=== PATIENT | female | born 1945 | race Caucasian/White ===

== ENCOUNTER → 2020-01-27 13:39 | Outpatient (BNVA) | payer MEDICARE, SELFPAY | PROVIDERS: Family Provider Nurse Practitioner Family; PCP Nurse Practitioner Family; Visit Provider Family Medicine | DX: I10 Essential (primary) hypertension (principal); F41.9 Anxiety disorder, unspecified; R73.03 Prediabetes; J44.1 Chronic obstructive pulmonary disease with (acute) exacerbation; N39.0 Urinary tract infection, site not specified | CPT/HCPCS: 80053; 81003; 82306; 83036; 84443; 85025 ==

== ENCOUNTER → 2020-08-16 10:16 | Outpatient (BNVA) | payer MEDICARE, SELFPAY | PROVIDERS: Family Provider Nurse Practitioner Family; PCP Nurse Practitioner Family; Visit Provider Nurse Practitioner Family | DX: R30.0 Dysuria (principal); N39.0 Urinary tract infection, site not specified; R31.9 Hematuria, unspecified; J06.9 Acute upper respiratory infection, unspecified; H60.93 Unspecified otitis externa, bilateral; F41.9 Anxiety disorder, unspecified; E04.9 Nontoxic goiter, unspecified | CPT/HCPCS: 81003 ==

== ENCOUNTER → 2020-08-17 08:25 | Outpatient (BNVA) | payer MEDICARE, SELFPAY | PROVIDERS: Family Provider Nurse Practitioner Family; PCP Nurse Practitioner Family; Visit Provider Nurse Practitioner Family | DX: E04.9 Nontoxic goiter, unspecified (principal); I10 Essential (primary) hypertension; E55.9 Vitamin D deficiency, unspecified | CPT/HCPCS: 80053; 82306; 84439; 84443; 85025 ==

== ENCOUNTER → 2021-03-03 11:58 | Outpatient (BNVA) | payer MEDICARE, SELFPAY | PROVIDERS: Family Provider Nurse Practitioner Family; PCP Nurse Practitioner Family; Visit Provider Nurse Practitioner Family | DX: N39.0 Urinary tract infection, site not specified (principal); R31.9 Hematuria, unspecified | CPT/HCPCS: 81003; 87077; 87086; 87184 ==

== ENCOUNTER → 2021-07-12 16:17 | Outpatient (BNVA) | payer MEDICARE, SELFPAY | PROVIDERS: Family Provider Nurse Practitioner Family; PCP Nurse Practitioner Family; Visit Provider Nurse Practitioner Family | DX: N39.0 Urinary tract infection, site not specified (principal); R31.9 Hematuria, unspecified; R32 Unspecified urinary incontinence; E04.9 Nontoxic goiter, unspecified; E55.9 Vitamin D deficiency, unspecified; R73.03 Prediabetes; I10 Essential (primary) hypertension; Z13.6 Encounter for screening for cardiovascular disorders; M54.50 Low back pain, unspecified | CPT/HCPCS: 80053; 80061; 81003; 82306; 83036; 84439; 84443; 85025 ==

== ENCOUNTER → 2021-11-22 08:09 | Outpatient (BNVA) | payer MEDICARE, SELFPAY | PROVIDERS: Family Provider Nurse Practitioner Family; PCP Nurse Practitioner; Visit Provider Nurse Practitioner Family | DX: N39.0 Urinary tract infection, site not specified (principal); F41.9 Anxiety disorder, unspecified; R39.9 Unspecified symptoms and signs involving the genitourinary system | CPT/HCPCS: 81000 ==

== ENCOUNTER → 2022-10-05 11:39 | Outpatient (BNVA) | payer MEDICARE, SELFPAY | PROVIDERS: Family Provider Nurse Practitioner Family; PCP Nurse Practitioner; Visit Provider Nurse Practitioner | DX: R31.9 Hematuria, unspecified (principal); N39.0 Urinary tract infection, site not specified | CPT/HCPCS: 81000; 87086 ==

== ENCOUNTER → 2022-12-13 08:53 | Outpatient (BNVA) | payer MEDICARE, SELFPAY | PROVIDERS: Family Provider Nurse Practitioner Family; PCP Nurse Practitioner; Visit Provider Nurse Practitioner Family | DX: N39.0 Urinary tract infection, site not specified (principal) | CPT/HCPCS: 81000 ==

== ENCOUNTER 2023-06-14 18:08 | Inpatient (IN) | payer MEDICARE, MEDICAID, SELFPAY ==
[2023-06-14] VITALS (7 sets, daily range): BP systolic 140–202; BP diastolic 85–121; PULSE 84–106; RESP 18–22; TEMP 36.4; O2SAT 95–99; BMI 28.5
--- NOTE | 2023-06-14 18:14 | XRR_ITS ---
PROCEDURE INFORMATION: Exam: XR Chest Exam date and time: 06/14/2023 6:36 PM Age: 78 years old Clinical indication: Dyspnea TECHNIQUE: Imaging protocol: Radiologic exam of the chest. Views: 1 view. COMPARISON: No relevant prior studies available. FINDINGS: Lungs: Lungs are hyperinflated. Clear parenchyma. Pleural spaces: No pleural effusion. No pneumothorax. Heart/Mediastinum: Cardiac silhouette is normal in size for technique. Bones/joints: Subjective bony demineralization. XR/XR chest 1V portable [id number] IMPRESSION: Hyperinflated but clear lungs. No other acute cardiopulmonary abnormality.
--- NOTE | 2023-06-14 18:19 | ECG_ITS ---
[facility] Test Date: 2023-06-14 Pat Name: Minnie Sanchez Department: Room: Gender: Female Import/Export Analyst: : 1945 Requested By: Jaswant Lindquist Order Number: [id number] Coty MD: Leigh Adhikari M.D. Measurements Intervals [place] Rate: 98 P: 60 ME: 159 QRS: 35 QRSD: 91 T: 94 QT: 323 QTc: 414 Interpretive Statements SINUS RHYTHM WITH OCCASIONAL SUPRAVENTRICULAR PREMATURE COMPLEXES SEPTAL MYOCARDIAL INFARCTION , PROBABLY OLD [40+ ms Q WAVE IN V1/V2] No previous ECG available for comparison Electronically Signed On 06-14-2023 21:13:04 PROJECTS MANAGER by Leigh Adhikari M.D. [id number] f
--- NOTE | 2023-06-14 18:19 | ED_ITS ---
HPI - SOB/Dyspnea 2 General: Chief Complaint: Shortness of Breath/Dyspnea Stated Complaint: sob Time Seen by Provider: 06/14/23 18:08 History of Present Illness: HPI Narrative: Patient presents to the ER from the EMS from the long-term with complaints of shortness of breath. Patient had pneumonia approximately a month ago was put in a long-term for rehab and underwent several treatments but she has not been getting any better. Today EMS was called for shortness of breath. When I got there they said she was breathing about 40 times a minute with very small tidal volume. They put her on CPAP immediately I brought her to the emergency room. Review of Systems 2 General: Reports: 10 or more systems reviewed and unremarkable except in HPI and below PFSH ED 2 PFSH: Medical History Lumbar pain Hypertension screen Urinary incontinence Frequent UTI Vitamin D deficiency Thyroid goiter Otitis externa of both ears Urinary tract infection Upper respiratory infection Cough Lower respiratory tract infection Refused influenza vaccine Chronic obstructive pulmonary disease Anxiety Essential hypertension Surgical History History of cholecystectomy H/O: hysterectomy Social History Smoking and tobacco/nicotine status: former use of tobacco/nicotine Physical Exam 2 Const: COMMON NORMALS: average body habitus, patient oriented x3, no limitations, healthy appearing, alert and well nourished HENMT: COMMON NORMALS: normocephalic, atraumatic, hearing grossly normal bilaterally, EAC's normal, Normal external nose present, moist oral mucous membranes and oropharynx normal HEAD & SCALP: normocephalic and atraumatic NOSE: Normal external nose present EXTERNAL AUDITORY CANAL: EAC's normal Eye: COMMON NORMALS: Equal, round and reactive pupils present, EOMs intact bilaterally, conjunctivae normal and no scleral icterus CONJUNCTIVA: Yes conjunctivae normal PUPIL: Yes Equal, round and reactive pupils present Neck/C-Spine: COMMON NORMALS: full ROM, no lymphadenopathy, supple, no meningeal signs, no JVD and Thyroid normal THYROID: Thyroid normal Chest: COMMONS NORMALS: normal inspection of the chest and normal palpation of entire chest wall Resp: COMMON NORMALS: negative for normal respiratory effort, negative for No retractions, negative for No use of accessory muscles (Abdominal breathing) and negative for clear to auscultation bilaterally (Rhonchi and wheezes bilaterally with very limited air movement) AUSCULTATION: not clear to auscultation bilaterally (Rhonchi and wheezes bilaterally with very limited air movement) Cardio: COMMON NORMALS: no JVD, regular rate, regular rhythm, S1 normal heart sound present, S2 normal heart sound present, No gallops present (Cardio), No clicks present (Cardio), No murmurs present (Cardio) and No rub (Cardio) R ATE: regular rate RHYTHM: regular rhythm HEART SOUNDS: S1 normal heart sound present and S2 normal heart sound present GI: COMMON NORMALS: Normal to inspection, nondistended, normoactive bowel sounds present, Soft to palpation, non-tender, No hepatosplenomegaly present and no masses PALPATION: Yes Soft to palpation and Yes No hepatosplenomegaly present Extremity: NARRATIVE EXTREMITY EXAM: Negative bilateral lower extremity edema Neuro: COMMON NORMALS: patient oriented x3 SENSORIUM/ORIENTATION: Yes alert MENINGEAL SIGNS: Yes no meningeal signs Course 2 Vital Signs: Vital signs: Vital Signs Temperature 97.6 F 06/14/23 18:11 Pulse Rate 105 H 06/14/23 22:14 Respiratory Rate 18 06/14/23 22:14 Blood Pressure 151/108 06/14/23 22:14 Pulse Oximetry 96 06/14/23 22:14 Oxygen Delivery Me thod Nasal Cannula 06/14/23 18:35 Oxygen Flow Rate 2 06/14/23 18:35 MDM - SOB/Dyspnea Medical Decision Making Patient arrived to the ER with BiPAP in place but did not like the BiPAP we placed on 2 L of oxygen per nasal cannula and her oxygen saturation stayed in the mid 90s. An ABG was obtained which showed her pH pCO2 was normal her pO2 was decreased at 77, CBC CMP chest x-ray were all obtained and were essentially benign. Patient's initial troponin was approximately 39 and her 2-hour troponin was approximately 49 for delta of 10 patient is not having chest pain nor has she ever had chest pain. Patient was given 125 mg Solu-Medrol. Lactic acid, procalcitonin were both normal influenza and COVID were negative Dr. Mcclellan was consulted for further evaluation and treatment and he agreed to place patient in CSU for observation. Differential Diagnosis Likely acute exacerbation of chronic obstructive airways disease and community acquired pneumonia; Unlikely congestive heart failure, asthma with exacerbation or pulmonary embolism Medical Records I reviewed the patient's medical records. Lab Data I reviewed the patient's lab results. 06/14/23 18:22 06/14/23 18:22 Labs/Radiology: Radiology Impressions Chest X-Ray 06/14/23 18:14 IMPRESSION: Hyperinflated but clear lungs. No other acute cardiopulmonary abnormality. Laboratory Results WBC 8.11 10^3/uL (3.29-11.43) 06/14/23 18:22 RBC 5.34 10^6/uL (3.85-5.65) 06/14/23 18:22 Hgb 15.40 g/dL (11.27-16.99) 06/14/23 18:22 Hct 48.6 % (36-47) H 06/14/23 18:22 MCV 91.0 fl (85-98) 06/14/23 18:22 MCH 28.8 pg (27-33) 06/14/23 18: MCHC 31.7 g/dL (30-55) 06/14/23 18:22 RDW 14.9 % (12.1-15.1) 06/14/23 18:22 Plt Count 249 10^3/cmm (157-399) 06/14/23 18:22 MPV 8.4 fL (7.4-10.4) 06/14/23 18:22 Neut % (Auto) 92.0 % 06/14/23 18:22 Lymph % (Auto) 3.8 % 06/14/23 18:22 Garden % (Auto) 3.6 % 06/14/23 18:22 Eos % (Auto) 0.0 % 06/14/23 18:22 Baso % (Auto) 0.0 % 06/14/23 18:22 Neut # (Auto) 7.46 10^3/uL (1.8-7.7) 06/14/23 18:22 Lymph # (Auto) 0.3 10^3/uL (0.8-4.8) L 06/14/23 18:22 Garden # (Auto) 0.3 10^3/uL (0.2-0.9) 06/14/23 18:22 Eos # (Auto) 0.0 10^3/uL (0.0-0.8) 06/14/23 18:22 Baso # (Auto) 0.0 10^3/uL (0.0-0.1) 06/14/23 18:22 Nucleated RBC % (auto) 0 % 06/14/23 18:22 Nucleated RBCs # 0.0 /100WBC 06/14/23 18:22 Specimen Type Arterial 06/14/23 18:15 Sample Site Radial, right 06/14/23 18:15 ABG pH 7.39 (7.35-7.45) 06/14/23 18:15 ABG pCO2 40.1 mmHg (35-45) 06/14/23 18:15 ABG pO2 77.6 mmHg (80.0-100.0) L 06/14/23 18:15 ABG PO2/FiO2 Ratio 0 06/14/23 18:15 ABG HCO3 24.0 mmol/L (22-26) 06/14/23 18:15 ABG O2 Saturation 96.7 06/14/23 18:15 ABG Base Excess -0.9 mmol/L (-2.0-2.0) 06/14/23 18:15 Madi Test Pos 06/14/23 18:15 A-a O2 Gradient 3.1 mmHg (5-10) L 06/14/23 18:15 Hematocrit 51.7 % (37-47) H 06/14/23 18:15 Hgb O2 Saturation 95.8 % (95-100) 06/14/23 18:15 Carboxyhemoglobin 0.7 %THgb (0.4-20.1) 06/14/23 18:15 Methemoglobin 0.2 % (0.4-1.5) L 06/14/23 18:15 Total Hemoglobin 16.9 g/dL (12-16) H 06/14/23 18:15 Sodium 144.0 mmol/L (131-143) H 06/14/23 18:15 Potassium 4.2 mmol/L (3.5-5.0) 06/14/23 18:15 Glucose 142.0 mg/dL (70-115) H 06/14/23 18:15 Ionized Calcium 1.3 mmol/L (1.1-1.4) 06/14/23 18:15 O2 Delivery Device Nc 06/14/23 18:15 O2 Liters/Min 0.0 % 06/14/23 18:15 FiO2 21.0 % 06/14/23 18:15 Senior Game Developer ID [email or web address] 06/14/23 18:15 Sodium 143 mmol/L (136-145) 06/14/23 18:22 Potassium 4.5 mmol/L (3.5-5.1) 06/14/23 18:22 Chloride 113 mmol/L (98-107) H 06/14/23 18:22 Carbon Dioxide 22 mmol/L (22-29) 06/14/23 18:22 Anion Gap 12.5 (5-19) 06/14/23 18:22 BUN 28 mg/dL (8-23) H 06/14/23 18:22 Creatinine 0.5 mg/dL (0.5-0.9) 06/14/23 18:22 GFR Calculation Not Reportable 06/14/23 18:22 Glucose 146 mg/dL (65-115) H 06/14/23 18:22 Calculated Osmolality 304 mOsm/kg (285-295) H 06/14/23 18:22 Lactic Acid 0.9 mmol/L (0.5-2.2) 06/14/23 18:22 Calcium 8.6 mg/dL (8.5-10.5) 06/14/23 18:22 Magnesium 2.2 mg/dL (1.7-2.3) 06/14/23 18:22 Total Bilirubin 0.5 mg/dL (0.15-1.2) 06/14/23 18:22 AST 28 U/L (0-32) 06/14/23 18:22 ALT 57 U/L (0-33) H 06/14/23 18:22 Alkaline Phosphatase 122 U/L (35-105) H 06/14/23 18:22 Troponin T Baseline 39 ng/L (0-10) H 06/14/23 18:22 Troponin T 120 Minute 49.64 ng/L (0-10) H 06/14/23 21:05 Delta Troponin T 10.64 ABS# (0-10) H* 06/14/23 21:05 Total Protein 5.2 g/dL (6.6-8.7) L 06/14/23 18:22 Albumin 3.4 g/dL (3.5-5.2) L 06/14/23 18:22 Globulin 1.8 g/dL (1.3-4.6) 06/14/23 18:22 Procalcitonin 0.08 ng/mL (0-0.5) 06/14/23 18:22 Influenza Type A Ag negative (Negative) 06/14/23 18:25 Influenza Type B Ag negative (Negative) 06/14/23 18:25 SARS-CoV-2 Ag (Rapid) negative (Negative) 06/14/23 18:25 All radiology interpretation(s) finalized by discharge EKG Data EKG 1: I personally reviewed and interpreted this EKG as follows: EKG Interpretation Date: 06/14/23 EKG interpretation time: 18:19 Prior EKG tracings: not available for review Interpretation: Ventricular rate 98 bpm, IN interval 159, QRS duration 91, QTc of 379, sinus rhythm with occasional PVC, EKG 2: I personally reviewed and interpreted this EKG as follows: EKG Interpretation Date: 06/14/23 EKG interpretation time: 21:58 Prior EKG tracings: available for review Interpretation: Ventricular rate 102 bpm, IN interval 149, QRS duration 112, QTc of 393, sinus tachycardia with occasional PVCs Discharge Plan Discharge Patient Disposition: Placed in Observation Clinical Impression: Acute exacerbation of chronic obstructive pulmonary disease, Acute hypoxic respiratory failure, Elevated troponin, Hypertension Condition: Stable Prescriptions: No Action loratadine [Claritin] 10 mg tablet 10 mg PO DAILY betamethasone acet,sod phos 6 mg/mL suspension 6 mg IM ONCE Qty: 1 0RF cholecalciferol (vitamin D3) 1,250 mcg (50,000 unit) capsule 1,250 mcg PO .weekly Qty: 4 5RF hydroxyzine HCl 25 mg tablet 25 mg PO BEDTIME PRN (Reason: insomnia) Qty: 30 0RF ropinirole 0.5 mg tablet 0.5 mg PO DAILY Qty: 30 6RF Rx Instructions: at bedtime for RLS Breo Ellipta 100-25 mcg/dose blister with device 1 inh inhalation DAILY Qty: 60 1RF cyclobenzaprine 10 mg tablet 10 mg PO DAILY PRN (Reason: muscle spasm) Qty: 7 0RF furosemide 20 mg tablet See Rx Instructions .ROUTE .COMPLEX Qty: 90 1RF Dose Instruction: TAKE 1 TABLET BY MOUTH EVERY DAY Rx Instructions: TAKE 1 TABLET BY MOUTH EVERY DAY potassium chloride 20 mEq tablet,ER particles/crystals See Rx Instructions .ROUTE .COMPLEX Qty: 90 1RF Dose Instruction: TAKE 1 TABLET BY MOUTH EVERY DAY Rx Instructions: TAKE 1 TABLET BY MOUTH EVERY DAY montelukast 10 mg tablet See Rx Instructions .ROUTE .COMPLEX Qty: 90 1RF Dose Instruction: TAKE 1 TABLET BY MOUTH EVERY DAY Rx Instructions: TAKE 1 TABLET BY MOUTH EVERY DAY alprazolam 1 mg tablet 1 mg PO BID PRN (Reason: anxiety) Qty: 60 5RF lisinopril 20 mg tablet See Rx Instructions .ROUTE .COMPLEX Qty: 30 0RF Dose Instruction: TAKE 1 TABLET BY MOUTH EVERY DAY Rx Instructions: TAKE 1 TABLET BY MOUTH EVERY DAY Combivent Respimat 20-100 mcg/actuation mist See Rx Instructions .ROUTE .COMPLEX Qty: 4 0RF Dose Instruction: USE ONE INHALATION BY MOUTH EVERY 6 HOURS NEEDED FOR SHORTNESS OF BREATH OR WHEEZING Rx Instructions: USE ONE INHALATION BY MOUTH EVERY 6 HOURS NEEDED FOR SHORTNESS OF BREATH OR WHEEZING fluticasone furoate-vilanterol [Breo Ellipta] 100-25 mcg/dose blister with device See Rx Instructions .ROUTE .COMPLEX Qty: 30 0RF Hold Instructions: Adverse Reaction Dose Instruction: USE ONE INHALATION BY MOUTH EVERY DAY FOR 30 DAYS Rx Instructions: USE ONE INHALATION BY MOUTH EVERY DAY FOR 30 DAYS PT MUST MAKE AN APPOINTMENT FOR ADDITIONAL REFILLS. Referrals: Spring Davenport FNP [Nurse Practitioner] - Coding Level of Care Code ED Training Engineer for Shawn Sandra
[2023-06-14 18:25] LABS: ABG PCO2 40.1 mmHg (35-45); ABG PH Result 7.39 (7.35-7.45); Alveolar-Arterial Oxygen Gradi 3.1 mmHg (5-10); Arterial Blood Gas Hematocrit 51.7 % (37-47); Base Excess ABG -0.9 mmol/L (-2.0-2.0); Blood Gas Allen Test Pos; Blood Gas Operator Identificat glc; Blood Gas Sample Site Radial, right; Blood Gas Sample Type Arterial; Carboxyhemoglobin 0.7 %THgb (0.4-20.1); HGB O2 Sat 95.8 % (95-100); Ionized Calcium Level - ABG 1.3 mmol/L (1.1-1.4); Methemoglobin 0.2 % (0.4-1.5); Oxygen Device NC; Oxygen Saturation ABG 96.7; PO2 ABG 77.6 mmHg (80.0-100.0); PO2 FiO2 Ratio Arterial Blood 0; Potassium Level - ABG 4.2 mmol/L (3.5-5.0); Total Hemoglobin 16.9 g/dL (12-16)
[2023-06-14 18:36] LABS: Hematocrit 48.6 % (36-47); Lymphocytes # 0.3 10^3/uL (0.8-4.8); Lymphocytes % 3.8 %; Mean Corpuscular HGB Conc 31.7 g/dL (30-55); Mean Corpuscular Hemoglobin 28.8 pg (27-33); Mean Platelet Volume 8.4 fL (7.4-10.4); Monocytes # 0.3 10^3/uL (0.2-0.9); Monocytes % 3.6 %; Neutrophils # 7.46 10^3/uL (1.8-7.7); Nucleated Red Blood Cells % 0 %; Platelet Count 249 10^3/cmm (157-399); Red Blood Count 5.34 10^6/uL (3.85-5.65); Red Cell Distribution Width 14.9 % (12.1-15.1); White Blood Count 8.11 10^3/uL (3.29-11.43)
[2023-06-14 18:56] LABS: Alanine Aminotransferase 57 U/L (0-33); Albumin Level 3.4 g/dL (3.5-5.2); Alkaline Phosphatase 122 U/L (35-105); Anion Gap 12.5 (5-19); Aspartate Amino Transferase 28 U/L (0-32); Blood Urea Nitrogen 28 mg/dL (8-23); Calcium 8.6 mg/dL (8.5-10.5); Carbon Dioxide 22 mmol/L (22-29); Chloride 113 mmol/L (98-107); Creatinine Clr Calc Pharmacy 56.6555; Globulin 1.8 g/dL (1.3-4.6); Glucose 146 mg/dL (65-115); Magnesium 2.2 mg/dL (1.7-2.3); Osmolality Calculated 304 mOsm/kg (285-295); Potassium 4.5 mmol/L (3.5-5.1); Sodium 143 mmol/L (136-145); Total Bilirubin 0.5 mg/dL (0.15-1.2); Total Protein 5.2 g/dL (6.6-8.7)
[2023-06-14 18:57] LABS: Influenza A by IFA negative (Negative); Influenza B by IFA negative (Negative)
[2023-06-14 18:59] LABS: SARS Covid-2 Antigen negative (Negative)
[2023-06-14 18:59] LABS: Lactic Sepsis W/Reflex 0.9 mmol/L (0.5-2.2)
[2023-06-14 19:00] LABS: Troponin(5th) Baseline 39 ng/L (0-10)
[2023-06-14 19:01] LABS: Procalcitonin 0.08 ng/mL (0-0.5)
[2023-06-14] MEDS: methylPREDNISolone sod succ 125 mg/2 mL INJ IVP (19:16)
[2023-06-14] MEDS: hyDRALAzine 20 mg/mL INJ 1 mL IVP (20:16)
[2023-06-14 21:48] LABS: Troponin 5 2HR 49.64 ng/L (0-10)
[2023-06-14 21:52] LABS: Troponin 5 2HR Delta 10.64 ABS# (0-10)
--- NOTE | 2023-06-14 21:58 | ECG_ITS ---
[facility] Test Date: 2023-06-14 Pat Name: Minnie Sanchez Department: Room: Gender: Female Passenger Solicitor: : 1945 Requested By: Jaswant Lindquist Order Number: [id number] Coty MD: Leigh Adhikari M.D. Measurements Intervals [place] Rate: 102 P: 96 RI: 149 QRS: 152 QRSD: 112 T: 148 QT: 335 QTc: 436 Interpretive Statements SINUS TACHYCARDIA WITH FREQUENT SUPRAVENTRICULAR PREMATURE COMPLEXES ARM LEADS REVERSED [INVERTED P AND QRS IN I] ABNORMAL RHYTHM ECG Compared to ECG 06/14/2023 18:19:53 Sinus rhythm no longer present Myocardial infarct finding no longer present Electronically Signed On 06-15-2023 18:01:50 BUSINESS SERVICES ASSOCIATE by Leigh Adhikari M.D. [id number]
[2023-06-14 22:31] LABS: NT Pro B Type Natriuretic Pept 1903 pg/mL (0-450)
[2023-06-14] MEDS: enoxaparin 80 mg/0.8 mL Syringe SUBCUT (22:31)
[2023-06-14 22:34] LABS: D Dimer 0.99 ug/mLFEU (0-0.59)
[2023-06-15] VITALS (18 sets, daily range): BP systolic 115–173; BP diastolic 56–105; PULSE 83–135; RESP 18–27; TEMP 35.6–36.5; O2SAT 89–97
--- NOTE | 2023-06-15 01:28 | USCV_ITS ---
Minnie Sanchez Age: 78 Gender: F : 1945 Exam Date: 06/15/2023 09:22 Ordering Phys: Brayden Mcclellan MD Technologist: JOSE G Exam Location: [facility] [place] Indication: nstemi BP: 160 / 79 HR: 85 Rhythm: Sinus Technical Quality: Adequate MEASUREMENTS (Male / Female) Normal Values 2D ECHO LVOT Diameter 2.0 cm LV Ejection Fraction MOD 2C 67.5 % LV Ejection Fraction 2C AL 0.0 % LA Diameter 3.0 cm RA Systolic Volume 4C AL 25.1 ml RA Systolic Volume 4C MOD 24.6 ml Aorta at Sinotubular Diameter 2.7 cm IVC Diameter 1.5 cm M-MODE LA Ao Ratio MM 1.0 AV Cusp Separation MM 2.0 cm DOPPLER AV Peak Velocity 214.0 cm/s LVOT Peak Velocity 125.0 cm/s AV Area Cont Eq vti 2.2 cm squared AV Area Cont Eq pk 1.9 cm squared MV Peak Velocity 110.0 cm/s MV Area PHT 3.9 cm squared Mitral E to A Ratio 0.9 TV Peak Velocity 199.7 cm/s TR Peak Velocity 300.0 cm/s TR Peak Gradient 36.0 mmHg TR Mean Velocity 225.0 cm/s TR Mean Gradient 22.3 mmHg TR Velocity Time Integral 67.0 cm PV Peak Velocity 167.0 cm/s RV Ejection Time 0.2 s FINDINGS Left Ventricle Moderate to severe concentric left ventricular hypertrophy seen. LV systolic function is normal with EF of 60-65%. No regional wall motion abnormalities are seen. Grade 1 diastolic dysfunction Right Ventricle Normal in size and function Right Atrium Normal in size Left Atrium Normal in size Mitral Valve Structurally normal mitral valve. Mild mitral regurgitation. Aortic Valve Aortic valve is thickened and calcified. Mild aortic stenosis with aortic valve area of 2.1 cm2 and mean gradient of 10 mmHg. Tricuspid Valve Trace tricuspid regurgitation. Insufficient TR jet to calculate RVSP Pulmonic Valve Not well visualized Pericardium Grossly normal Aorta Normal ins size IVC Normal in size CONCLUSIONS LV systolic function is normal with EF of 60-65% Moderate to severe concentric left ventricular hypertrophy Mild mitral regurgitation. Mild aortic stenosis Trace tricuspid regurgitation No comparison studies are available. Jimi Nelson MD (Electronically Signed) Final Date: 15 June 2023 12:03 S
--- NOTE | 2023-06-15 01:45 | PM.HP ---
Providers/Chief Complaint Admitting Physician: Brayden Mcclellan Primary Care Provider: LESLEY Encinas Chief Complaint: sob History of Present Illness 78-year-old lady with history of COPD, was brought in from correction due to shortness of breath, on arrival on BiPAP, with tachycardia, tachypnea, wheezing bilaterally, decreased air entry, did not tolerate BiPAP so switched over to 2 L nasal cannula, received breathing treatment, Solu-Medrol. In ER she is found to have positive troponin delta. He is awake and alert, responds to questions, but is not a good historian, also is not currently oriented to place, thinking she is at the correction, but cannot tell me the year. Oriented to person. Review of Systems Const: Denies: fever(s), chills, body aches or malaise ENMT: Denies: throat pain Card: Denies: chest pain, edema, pre-syncope or dyspnea on exertion Resp: Reports: dyspnea; Denies: productive cough, change in phlegm color or hemoptysis GI: Denies: abdominal pain, nausea, vomiting, diarrhea, constipation, hematochezia or melena : Denies: flank pain, urinary frequency or hematuria Musc: Denies: back pain, joint swelling or joint redness Skin/Breast: Denies: rash or new lesions Neuro: Reports: confusion; Denies: headache(s) Medications/Allergies Home Medications Medication Instructions Recorded Confirmed Last Taken Type acetaminophen 650 mg 650 mg PO Q12H PRN mild/mod pain 06/14/23 06/14/23 Unknown History tablet,extended release albuterol sulfate 2.5 mg/3 mL 2.5 mg inhalation Q4H PRN sob 06/14/23 06/15/23 06/14/23 History (0.083 %) solution for nebulization aspirin 81 mg tablet,delayed 81 mg PO DAILY 06/14/23 06/15/23 06/14/23 History release atorvastatin 80 mg tablet 80 mg PO QPM 06/14/23 06/15/23 06/14/23 History clopidogrel 75 mg tablet 75 mg PO DAILY 06/14/23 06/15/23 06/14/23 History alprazolam 1 mg tablet 0.5 mg PO Q12H PRN anxiety 06/15/23 06/15/23 06/14/23 History fluticasone furoate 100 1 inh inhalation DAILY 06/15/23 06/15/23 06/14/23 History mcg-vilanterol 25 mcg/dose inhalation powder (Breo Ellipta) ipratropium 20 mcg-albuterol 100 1 puff inhalation Q6H PRN sob. 06/15/23 06/15/23 06/14/23 History mcg/actuation mist for inhalation (Combivent Respimat) lisinopril 20 mg tablet 20 mg PO DAILY 06/15/23 06/15/23 06/14/23 History sertraline 25 mg tablet (Zoloft) 25 mg PO BEDTIME 06/15/23 06/15/23 06/14/23 History Allergies Allergy/AdvReac Type Severity Reaction Status Date / Time cefaclor [From [facility]] Allergy Intermediate unknown Verified 06/14/23 18:17 Penicillins Allergy Mild unknown Verified 06/14/23 18:17 PFSH Acute PFSH: Medical History Lumbar pain Hypertension screen Urinary incontinence Frequent UTI Vitamin D deficiency Thyroid goiter Otitis externa of both ears Urinary tract infection Upper respiratory infection Cough Lower respiratory tract infection Refused influenza vaccine Chronic obstructive pulmonary disease Anxiety Essential hypertension Surgical History History of cholecystectomy H/O: hysterectomy Social History Smoking and tobacco/nicotine status: former use of tobacco/nicotine Vitals/I&O/Wt Last Vital Signs Temp 97.6 F 06/14/23 18:11 Pulse 129 H 06/15/23 00:35 Resp 22 H 06/14/23 23:39 BP 140/85 06/14/23 23:39 Pulse Ox 96 06/14/23 23:39 O2 Del Method Nasal Cannula 06/15/23 00:16 O2 Flow Rate 2 06/14/23 18:35 Weight last 48 hrs Weight 75.568 kg Weight 75.296 kg Physical Exam Const: COMMON NORMALS: patient oriented x3 and alert GENERAL APPEARANCE: cooperative ORIENTATION/CONSCIOUSNESS: Yes awake HENMT: COMMON NORMALS: oropharynx normal Neck/C-Spine: COMMON NORMALS: no JVD Resp: COMMON NORMALS: normal respiratory effort and clear to auscultation bilaterally AUSCULTATION: rhonchi, wheezes and diminished lung sounds Cardio: COMMON NORMALS: no JVD, regular rhythm, S1 normal heart sound present, S2 normal heart sound present and No murmurs present (Cardio) RATE: tachycardic RHYTHM: regular rhythm HEART SOUNDS: S1 normal heart sound present and S2 normal heart sound present GI: COMMON NORMALS: Normal to inspection, nondistended, normoactive bowel sounds present, Soft to palpation and non-tender PALPATION: Yes Soft to palpation Extremity: COMMON NORMALS: no joint enlargement and no pedal edema Neuro: COMMON NORMALS: moves all extremities; negative for patient oriented x3 SENSORIUM/ORIENTATION: Yes alert Skin: COMMON NORMALS: no rashes or lesions noted GENERAL SKIN EXAM: no rashes or lesions noted Data 06/14/23 18:22 06/14/23 18:22 Micro: Microbiology 06/14/23 21:09 Blood Culture - Preliminary Blood SPECIMEN COLLECTED 06/14/23 21:05 Blood Culture - Preliminary Blood SPECIMEN COLLECTED A&P Assessment and plan (1) Acute hypoxic respiratory failure: Acute respiratory failure with requirement for oxygen of 2 L, not normally on oxygen. Exacerbation of COPD, complicated by acute metabolic encephalopathy. Reviewed vitals, CBC, D-dimer, ABG, CMP, troponin, NT proBNP, procalcitonin, rapid influenza, rapid COVID, chest x-ray, EKG, ER note, discussed with ER provider. Quite diminished air entry, no wheezing, rhonchi, D-dimer with minimal elevation 0.99, no unilateral lower extremity swelling. Denies pleuritic chest discomfort, cough. Noted to have significant [place] activity. Continue IV steroids, monitor for risk of hyperglycemia, hypertension, gastritis, other complications. Start scheduled and as needed breathing treatments with DuoNebs, budesonide. Continue oxygen support, wean down as tolerating. Will assess respiratory viral panel. If starts being able to cough up some phlegm, pursue sputum culture. N.p.o. for now. (2) Acute exacerbation of chronic obstructive pulmonary disease: As above. (3) NSTEMI (non-ST elevated myocardial infarction): Denies chest pain or pressure, but does have mild to moderate troponin elevation with positive delta from baseline to 2 hours with 10.64 rise. On my interpretation of EKG no obvious signs of cardiac ischemia. Risk factors for coronary disease with hypertension, former smoking. Complete troponin EKG series. Monitor telemetry due to risk of arrhythmia. Obtain TTE. Continue aspirin, anticoagulation. Stress testing once respiratory function allows. (4) Alkaline phosphatase elevation: Incidentally noted alkaline phosphatase elevation up to 1.2. No abdominal pain, no right quadrant tenderness, Shields negative. Reassess liver parameters. (5) Transaminitis: Mild transaminitis, possibly related to viral illness, respiratory viral panel was requested to start given her condition and presentation. Reassess liver parameters. Plan HTN: Monitor blood pressures, continue lisinopril Anxiety: Xanax as needed. Attestations Medical Necessity Statement*: Admission of over 2 midnights anticipated for assessment management of hypoxic respiratory failure, COPD exacerbation, NSTEMI. Diagnoses Acute hypoxic respiratory failure J96.01 Acute exacerbation of chronic obstructive pulmonary disease J44.1 NSTEMI (non-ST elevated myocardial infarction) I21.4 Alkaline phosphatase elevation R74.8 Transaminitis R74.01
[2023-06-15 01:53] LABS: Troponin 5 6HR 34.72 ng/L (0-10)
[2023-06-15 01:57] LABS: Troponin 5 6HR Delta -4.28 ng/L (0-12)
[2023-06-15] MEDS: methylPREDNISolone sod succ 125 mg/2 mL INJ 60 MG IVP ×4 (02:16→20:36)
[2023-06-15] MEDS: aspirin 325 mg Tablet PO (02:16)
[2023-06-15] MEDS: ipratropium-albuterol 3 mL Neb INHALATION (02:23)
--- NOTE | 2023-06-15 03:04 | ECG_ITS ---
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 Measurements Intervals [place] Rate: 105 P: 0 MD: 0 QRS: 29 QRSD: 109 T: 203 QT: 320 QTc: 424 Interpretive Statements Multifocal atrial tachycardia with the PVCs ST DEVIATION AND MODERATE T-WAVE ABNORMALITY, CONSIDER LATERAL ISCHEMIA [-0.1+ mV T-WAVE IN I/aVL/V5/V6] Compared to ECG 06/14/2023 21:58:16 Ventricular premature complex(es) now present Aberrant conduction of supraventricular beat(s) now present T-wave abnormality now present Possible ischemia now present Sinus tachycardia no longer present Electronically Signed On 06-15-2023 18:02:42 POLICE CRIME SCENE TECHNICIAN by Leigh Adhikari M.D. [id number]
--- NOTE | 2023-06-15 03:12 | PC.NURSE ---
Patient sob requiring 3L NC presently with SpO2 89%. Heart rate 110s to 140s. Respirations 25-40. Informed Dr Mcclellan and received order to obtain EKG. Completed.
[2023-06-15 04:10] LABS: Adenovirus Not Detected (NOT DETECT); Chlamydia Pneumoniae Not Detected (NOT DETECT); Coronavirus 229E,HKU1,NL63,OC4 Not Detected (NOT DETECT); Human Metapneumovirus Not Detected (NOT DETECT); Human Rhinovirus/Enterovirus Not Detected (NOT DETECT); Influenza A Not Detected (NOT DETECT); Influenza A H1 Not Detected (NOT DETECT); Influenza A H1-2009 Not Detected (NOT DETECT); Influenza A H3 Not Detected (NOT DETECT); Influenza B Not Detected (NOT DETECT); Mycoplasma Pneumoniae Not Detected (NOT DETECT); Parainfluenza Virus Type 1 Not Detected (NOT DETECT); Parainfluenza Virus Type 2 Not Detected (NOT DETECT); Parainfluenza Virus Type 3 Not Detected (NOT DETECT); Parainfluenza Virus Type 4 Not Detected (NOT DETECT); Respiratory Syncytial Virus A Not Detected (NOT DETECT); Respiratory Syncytial Virus B Not Detected (NOT DETECT); SARS-COV-2 Not Detected (NOT DETECT)
[2023-06-15 04:30] LABS: Basophils % 0.1 %; Hematocrit 47.9 % (36-47); Lymphocytes # 0.2 10^3/uL (0.8-4.8); Lymphocytes % 2.4 %; Mean Corpuscular HGB Conc 32.4 g/dL (30-55); Mean Corpuscular Volume 89.5 fl (85-98); Mean Platelet Volume 8.3 fL (7.4-10.4); Monocytes # 0.1 10^3/uL (0.2-0.9); Monocytes % 0.8 %; Neutrophils # 8.05 10^3/uL (1.8-7.7); Neutrophils % 96.1 %; Nucleated Red Blood Cells % 0 %; Platelet Count 259 10^3/cmm (157-399); Red Blood Count 5.35 10^6/uL (3.85-5.65); Red Cell Distribution Width 15.3 % (12.1-15.1); White Blood Count 8.38 10^3/uL (3.29-11.43)
[2023-06-15 04:57] LABS: Alanine Aminotransferase 48 U/L (0-33); Albumin Level 3.3 g/dL (3.5-5.2); Alkaline Phosphatase 117 U/L (35-105); Anion Gap 16.1 (5-19); Aspartate Amino Transferase 21 U/L (0-32); Blood Urea Nitrogen 33 mg/dL (8-23); Carbon Dioxide 23 mmol/L (22-29); Chloride 107 mmol/L (98-107); Creatinine Clr Calc Pharmacy 56.7534; Globulin 2.8 g/dL (1.3-4.6); Glucose 160 mg/dL (65-115); Magnesium 2.3 mg/dL (1.7-2.3); Osmolality Calculated 305 mOsm/kg (285-295); Potassium 4.1 mmol/L (3.5-5.1); Sodium 142 mmol/L (136-145); Total Bilirubin 0.5 mg/dL (0.15-1.2); Total Protein 6.1 g/dL (6.6-8.7)
[2023-06-15] MEDS: budesonide 0.5 mg/2 mL Neb INHALATION ×2 (07:44→19:53)
[2023-06-15] MEDS: ipratropium 0.5 mg/2.5 mL Neb INHALATION ×3 (07:44→19:54)
[2023-06-15] MEDS: levalbuterol 1.25 mg/3 mL Neb INHALATION ×3 (07:44→19:53)
[2023-06-15] MEDS: pantoprazole DR 40 mg Tablet PO (08:49)
[2023-06-15] MEDS: enoxaparin 80 mg/0.8 mL Syringe 75 MG SUBCUT ×2 (08:49→21:51)
[2023-06-15] MEDS: lisinopril 20 mg Tablet PO (08:49)
[2023-06-15] MEDS: clopidogrel 75 mg Tablet PO (08:49)
[2023-06-15] MEDS: dilTIAZem 30 mg Tablet PO ×4 (08:49→20:46)
--- NOTE | 2023-06-15 09:24 | PC.CHAP ---
Pastoral Care Encounter/Spiritual Assessment Type of Contact [] Declined cartridge loader visit [] Patient/Family/Request visit [] Outpatient visit [] Follow-up visit [] Physician referral [] Code/Alert [x] Routine visit [] Staff referral [] Actively dying [] Patient sleeping [] Family support [] [] Out of room [] Palliative care [] [] Receiving care in room [] Pre-surgical visit [] Trauma [] Long length of stay [] ICU visit [] Other: Relational/Emotional Strength [x] Patient feels connected with others/family/visitors/staff [] Distress [] Loneliness/isolation [] Abandonment Spirituality of Patient [x] Person of Clarisse [] Attends Druze of their Clarisse [x] Believes in Prayer [] Reads Bible or Sikhism materials [] There are Spiritual issues to be addressed Disbursement Clerk Interventions [x] Prayer [x] Active listening [] Non-anxious presence [x] Spiritual/emotional support [] Crisis/trauma care [] Spiritual counseling [] Bereavement support [] Provided bereavement packet [] Provided Bible/devotional materials [] Provided toy/stuffed animal, coloring book to patient or family member [] Provided Communion [] Anointing/[place] [] Salvation [x] Completed spiritual assessment [] Other: Impact on Illness or Injury [] Angry [] Fearful [] Anxious [] Often cries [] Exhaustion [] Unable to work [] Unable to attend taoism [] Unable to walk/stand [] Unable to read [] Unable to drive [] Unable to eat/drink [] Unable to sleep [] Unable to be with family [] Patient intubated [] Other: Summary Time spent with patient 5 min
--- NOTE | 2023-06-15 09:25 | PC.CHAP ---
Pastoral Care Encounter/Spiritual Assessment Type of Contact [] Declined director center visit [] Patient/Family/Request visit [] Outpatient visit [] Follow-up visit [] Physician referral [] Code/Alert [x] Routine visit [] Staff referral [] Actively dying [] Patient sleeping [] Family support [] [] Out of room [] Palliative care [] [] Receiving care in room [] Pre-surgical visit [] Trauma [] Long length of stay [] ICU visit [] Other: Relational/Emotional Strength [x] Patient feels connected with others/family/visitors/staff [] Distress [] Loneliness/isolation [] Abandonment Spirituality of Patient [x] Person of Clarisse [] Attends Yazidi of their Clarisse [x] Believes in Prayer [] Reads Bible or Bahai materials [] There are Spiritual issues to be addressed Dry Kiln Feeder Interventions [x] Prayer [x] Active listening [] Non-anxious presence [x] Spiritual/emotional support [] Crisis/trauma care [] Spiritual counseling [] Bereavement support [] Provided bereavement packet [] Provided Bible/devotional materials [] Provided toy/stuffed animal, coloring book to patient or family member [] Provided Communion [] Anointing/[place] [] Salvation [x] Completed spiritual assessment [] Other: Impact on Illness or Injury [] Angry [] Fearful [] Anxious [] Often cries [] Exhaustion [] Unable to work [] Unable to attend jehovah's witness [] Unable to walk/stand [] Unable to read [] Unable to drive [] Unable to eat/drink [] Unable to sleep [] Unable to be with family [] Patient intubated [] Other: Summary Time spent with patient 5 min
--- NOTE | 2023-06-15 12:09 | CT_ITS ---
WS: [id number] CT CHEST ANGIOGRAPHY WITH REFORMATS HISTORY: sob, elevated d idmer, trop TECHNIQUE: Contiguous axial images are obtained through the chest during arterial injection of intrav enous contrast. Images are reconstructed to evaluate the pulmonary arteries. MIP imaging also reviewe d. All CT scans at [facility] use at least one of these dose optimization techniques: automat ed exposure control; mA and/or kV adjustment per patient size (includes targeted exams where dose is matched to clinical indication); or iterative reconstruction. CONTRAST: Omnipaque 350; 100 mL IV. DLP: 413.52 mGy.cm COMPARISON: None available. Very good opacification of the pulmonary arteries. Pulmonary arteries dilated. No filling defect or p ulmonary embolism. Moderate atherosclerosis and ectasia thoracic aorta. No aneurysm. No RIGHT heart s train. Small cavity LEFT ventricle. Suspect LEFT ventricular hypertrophy. No pericardial or pleural e ffusion. No adenopathy. Mild pulmonary venous congestion. No pneumonia or nodule. Very mild bronchial thickening in the LEFT lower lobe may be an early area of bronchitis. Small hiatal hernia. Prior cholecystectomy. Artifact t o the kidneys from patient's body habitus and arms. No destructive bone lesions. RIGHT breast mass 6 mm. IMPRESSION: 1. No pulmonary embolism. 2. Mildly ectatic thoracic aorta with atherosclerosis. 3. No adenopathy. 4. LEFT heart enlargement. Suspect LEFT ventricular hypertrophy. 5. No pneumonia. Subtle changes of tree-in-bud opacification at the LEFT lung base may indicate latrice y pneumonitis. 6. Prior cholecystectomy. 7. RIGHT breast mass, 6 mm. Recommend follow-up diagnostic mammography as an outpatient.
--- NOTE | 2023-06-15 12:09 | USCV_ITS ---
Minnie Sanchez Age: 78 Gender: F : 1945 Exam Date: 06/15/2023 14:26 Ordering Phys: Michael Persaud MD Technologist: William Kate Exam Location: [facility] [place]_ Indication: swelling PROCEDURES: Venous duplex imaging was performed in bilateral lower extremities. The following venous structures were evaluated: common femoral vein, profunda vein, proximal portion of the greater saphenous vein, superficial femoral vein, and the popliteal vein. In addition, the posterior tibial and peroneal trunk were evaluated. Serial compression, augmentation maneuvers, and spectral Doppler flow evaluation were performed. FINDINGS: Normal 2-D Doppler and augmentation and compressibility throughout the lower extremity venous structures. Additional imaging through the proximal calf veins also reveals no thrombus. Limited evaluation of the greater saphenous vein is patent with no thrombus. CONCLUSIONS No DVT bilateral lower extremities. Dr. Tran Woods DO (Electronically Signed) Final Date: 16 June 2023 07:49 S
--- NOTE | 2023-06-15 12:10 | CT_ITS ---
WS: [id number] CT HEAD NONCONTRAST HISTORY: ams TECHNIQUE: Contiguous axial imaging performed through the brain in 2.5 mm imaging. Bone and soft tiss ue windows. Sagittal and coronal reformats reviewed. All CT scans at [facility] use at least one of these dose optimization techniques: automated exposure control; mA and/or kV adjustment per pa tient size (includes targeted exams where dose is matched to clinical indication); or iterative recon struction. DLP: 1055.75 mGy.cm COMPARISON: None available. No acute intracranial hemorrhage, midline shift or mass effect. Mild atrophy and small vessel ischemic disease. No acute infarcts. Small lacunar infarcts in the exte rnal capsules. Ventricles: Normal size with no hydrocephalus. No inferior displacement of the cerebellar tonsils. Paranasal sinuses: As visualized are clear. Mastoid air cells: Well pneumatized. Calvarium and scalp: Skull is intact with no soft tissue edema or swelling. IMPRESSION: 1. No acute intracranial hemorrhage or edema. 2. Mild atrophy and small vessel ischemic disease. There are a few small lacunar infarcts.
--- NOTE | 2023-06-15 12:17 | P.PN_ITS ---
Subjective 2 Subjective: - Patient was seen this morning, current ly on 2 L, she is normotensive, respiratory rate 20-22, she has crackles and wheezing in all lung an -She is alert to person, not to place, n ot to time, she is quite encephalopathic, she can follow commands for me such as squeezing my fingers, she is able to move both lower extremities she is able to smile for me, but goes off staring off into space, no facial droop no slurring of her words, no seizure-like episodes pupils equal round reactive to light -When asked her how she is doing she tel ls me she is short of breath, but that is all she really states -I asked her multiple questions, but I d o not really get a response from her she does withdraw from pain, -I spoke to [facility], sp sukhdeep to patient's nurse, she tells me that she is not exactly sure why she was sent over to the hospital, but that her daughter had insisted on it, but at baseline, Minnie is alert oriented x 3 she follows all commands, she has had a stroke, so she does have very slight right- sided deficits but barely noticeable she tells me, she can get up with assistance, she can sit in the chair she is not a Mack lift, she does feed herself, -Spoke to nursing assoc at [facility], patient has been at [facility] for the last few weeks, she was recently admitted at [facility] for a CVA, and she is on a dysphagia diet, according to nursing assoc, yesterday patient was complaining of shortness of breath, she is 92% on room air, due to present shortness of breath and family's concern she was transferred to [facility] -1 dose Lasix 1 dose albumin, meropenem, CT angiogram of the chest TSH, ammonia level-spoke to nursing staff, spoke to [facility], spoke to patient Vitals/I&O/Wt Last Vital Signs Temp 97.6 F 06/15/23 11:51 Pulse 83 06/15/23 11:51 Resp 22 H 06/15/23 11:51 BP 134/58 06/15/23 11:51 Pulse Ox 92 06/15/23 11:51 O2 Del Method Room Air 06/15/23 11:51 O2 Flow Rate 3 06/15/23 07:46 Weight last 48 hrs Weight 75.568 kg Weight 75.568 kg Weight 75.296 kg Physical Exam 2 Const: COMMON NORMALS: no acute distress EXAM LIMITATIONS: altered mental status ORIENTATION/CONSCIOUSNESS: Yes awake, Yes oriented to person and Yes confused; not oriented to place and not oriented to time Eye: COMMON NORMALS: Equal, round and reactive pupils present PUPIL: Yes Equal, round and reactive pupils present Resp: COMMON NORMALS: normal respiratory effort, No retractions and No use of accessory muscles Cardio: COMMON NORMALS: regular rate, S1 normal heart sound present and S2 normal heart sound present RATE: regular rate RHYTHM: abnormal rhythm irregularly irregular HEART SOUNDS: S1 normal heart sound present and S2 normal heart sound present GI: COMMON NORMALS: Normal to inspection, nondistended, normoactive bowel sounds present and non-tender Extremity: NARRATIVE EXTREMITY EXAM: 1+ pitting edema bilateral extremity, bi lateral calf swelling, tenderness Neuro: SENSORIUM/ORIENTATION: Yes oriented to person, No oriented to place and No oriented to time Data 06/15/23 03:53 06/15/23 03:53 Micro: Microbiology 06/14/23 21:09 Blood Culture - Preliminary Blood SPECIMEN COLLECTED 06/14/23 21:05 Blood Culture - Preliminary Blood SPECIMEN COLLECTED A&P Assessment and plan (1) Acute hypoxic respiratory failure: (2) Acute exacerbation of chronic obstructive pulmonary disease: As above. (3) NSTEMI (non-ST elevated myocardial infarction): (4) Alkaline phosphatase elevation: (5) Transaminitis: (6) Aspiration pneumonia: (7) Acute encephalopathy: (8) Elevated d-dimer: (9) CHF exacerbation: (10) Atrial fibrillation with RVR: Plan Acute encephalopathy -Etiology likely multifactorial -TSH, ammonia level, CT head ordered -Likely aspiration pneumonia, -Neurochecks, and a stroke scale, aspiration precautions Acute hypoxic respiratory failure -Multifactorial -COPD exacerbation -CHF exacerbation, fluid overload -A-fib with RVR, fluid overload, flash pulm edema -Given elevated D-dimer, elevated troponin CT angiogram the chest Plan -Repeat ABG -Monitor cardiac stepdown unit -Will consider BiPAP therapy -Continue Solu-Medrol 60 mg IV every 6 hours -1 dose of 40 mg IV push Lasix today, with albumin -Start meropenem -Blood cultures A-fib with RVR -Currently heart rates are under control -Continue therapeutic Lovenox -chelsea cardizem NSTEMI ? Serial EKGs, serial troponin, telemetry monitoring ? Aspirin, statin, ?cardiac echo LV systolic function is normal with EF of 60-65% Moderate to severe concentric left ventricular hypertrophy Mild mitral regurgitation. Mild aortic stenosis Trace tricuspid regurgitation No comparison studies are available. History of recent CVA, -Right-sided deficits according to half-way, right hemiplegia hemiparesis -On a dysphagia diet -CT head -CHILD DEVELOPMENT PROFESSOR.o. -Speech therapy taye, PT OT - Patient was seen this morning, currently on 2 L, she is normotensive, respiratory rate 20-22, she has crackles and wheezing in all lung an -She is alert to person, not to place, not to time, she is quite encephalopathic, she can follow commands for me such as squeezing my fingers, she is able to move both lower extremities she is able to smile for me, but goes off staring off into space, no facial droop no slurring of her words, no seizure-like episodes pupils equal round reactive to light -When asked her how she is doing she tells me she is short of breath, but that is all she really states -I asked her multiple questions, but I do not really get a response from her she does withdraw from pain, -I spoke to [facility], spoke to patient's nurse, she tells me that she is not exactly sure why she was sent over to the hospital, but that her daughter had insisted on it, but at baseline, Minnie is alert oriented x 3 she follows all commands, she has had a stroke, so she does have very slight right- sided deficits but barely noticeable she tells me, she can get up with assistance, she can sit in the chair she is not a Mack lift, she does feed herself, -Spoke to nursing assoc at [facility], patient has been at [facility] for the last few weeks, she was recently admitted at [facility] for a CVA, and she is on a dysphagia diet, according to nursing assoc, yesterday patient was complaining of shortness of breath, she is 92% on room air, due to present shortness of breath and family's concern she was transferred to [facility] -1 dose Lasix 1 dose albumin, meropenem, CT angiogram of the chest TSH, ammonia level-spoke to nursing staff, spoke to [facility], spoke to patient HTN: Monitor blood pressures, continue lisinopril Anxiety: Xanax as needed. Attestations 2 Medical Necessity Statement*: Patient requires hospitalization, inpatient, greater than 2 midnights, for acute encephalopathy, A-fib with RVR, acute respiratory failure, pneumonia, CHF exacerbation and COPD exacerbation Diagnoses Acute hypoxic respiratory failure J96.01 Acute exacerbation of chronic obstructive pulmonary disease J44.1 NSTEMI (non-ST elevated myocardial infarction) I21.4 Alkaline phosphatase elevation R74.8 Transaminitis R74.01 Aspiration pneumonia J69.0 Acute encephalopathy G93.40 Elevated d-dimer R79.89 CHF exacerbation I50.9 Atrial fibrillation with RVR I48.91
[2023-06-15 12:44] LABS: C Reactive Protein 8.4 mg/L (0.0-4.9)
[2023-06-15 13:15] LABS: ABG PCO2 36.9 mmHg (35-45); ABG PH Result 7.44 (7.35-7.45); Blood Gas Allen Test Pos; Blood Gas Operator Identificat glc; Blood Gas Sample Site Radial, left; Blood Gas Sample Type Arterial; HCO3 ABG 24.9 mmol/L (22-26); Oxygen Device NC; PO2 ABG 71.9 mmHg (80.0-100.0); PO2 FiO2 Ratio Arterial Blood 0
[2023-06-15] MEDS: FUROsemide 10 mg/mL SDV 4mL 40 MG IVP (13:44)
[2023-06-15] MEDS: meropenem 1,000 MG in sodium chloride 0.9% (plus) 50 ML 100 MG IV ×2 (13:44→20:38)
[2023-06-15 14:47] LABS: Ammonia 31 umol/L (11-51)
[2023-06-15] MEDS: iohexol 350 mg/mL 500 mL Btl (per mL) IV (15:03)
[2023-06-15 17:45] LABS: Add Urine Microscopic? NO; Charge for UA Resulting for Rev
[2023-06-15 17:51] LABS: Bilirubin Urine Neg (Negative); Blood Urine Neg (Negative); Glucose Urine UA Norm (Normal); Ketones Urine Negative (Negative); Leukocyte Esterase Urine Negative (Negative); Nitrate Urine Negative (Negative); Protein Urine Neg (Negative); Urine Appearance Clear (CLEAR); Urine Color Light yellow (Yellow); Urobilinogen Urine Norm (Negative); pH Urine 5 (5-7)
[2023-06-15] MEDS: vancomycin 1,000 MG in sodium chloride 0.9% 250 ML 250 MG IV (18:29)
[2023-06-15] MEDS: sertraline 50 mg Tablet 25 MG PO (20:45)
[2023-06-15] MEDS: morphine 4 mg/mL SDV 1 mL 2 MG IVP (22:52)
[2023-06-16] VITALS (8 sets, daily range): BP systolic 99–163; BP diastolic 54–71; PULSE 60–78; RESP 16–26; TEMP 36.3–36.4; O2SAT 89–94; BMI 28.9
[2023-06-16] MEDS: methylPREDNISolone sod succ 125 mg/2 mL INJ 60 MG IVP ×2 (01:09→10:55)
[2023-06-16 04:26] LABS: Hematocrit 40.5 % (36-47); Lymphocytes # 0.3 10^3/uL (0.8-4.8); Lymphocytes % 3.7 %; Mean Corpuscular HGB Conc 32.6 g/dL (30-55); Mean Corpuscular Hemoglobin 29.2 pg (27-33); Mean Corpuscular Volume 89.6 fl (85-98); Mean Platelet Volume 8.6 fL (7.4-10.4); Monocytes # 0.3 10^3/uL (0.2-0.9); Monocytes % 3.4 %; Neutrophils # 7.46 10^3/uL (1.8-7.7); Neutrophils % 91.9 %; Nucleated Red Blood Cells % 0 %; Platelet Count 267 10^3/cmm (157-399); Red Blood Count 4.52 10^6/uL (3.85-5.65); Red Cell Distribution Width 15.8 % (12.1-15.1); White Blood Count 8.12 10^3/uL (3.29-11.43)
[2023-06-16 04:39] LABS: INR 1.16 (0.8-1.2)
[2023-06-16 04:47] LABS: Alanine Aminotransferase 33 U/L (0-33); Alkaline Phosphatase 85 U/L (35-105); Anion Gap 11.5 (5-19); Aspartate Amino Transferase 12 U/L (0-32); Blood Urea Nitrogen 44 mg/dL (8-23); C Reactive Protein 3.3 mg/L (0.0-4.9); Calcium 8.8 mg/dL (8.5-10.5); Carbon Dioxide 26 mmol/L (22-29); Chloride 113 mmol/L (98-107); Creatinine Clr Calc Pharmacy 56.7534; Globulin 2.1 g/dL (1.3-4.6); Glucose 148 mg/dL (65-115); Magnesium 2.3 mg/dL (1.7-2.3); Osmolality Calculated 318 mOsm/kg (285-295); Potassium 3.5 mmol/L (3.5-5.1); Sodium 147 mmol/L (136-145); Total Bilirubin 0.6 mg/dL (0.15-1.2); Total Protein 5.1 g/dL (6.6-8.7)
[2023-06-16 04:51] LABS: Lactate (Lactic Acid level) 0.9 mmol/L (0.5-2.2)
[2023-06-16 04:54] LABS: NT Pro B Type Natriuretic Pept 1505 pg/mL (0-450)
[2023-06-16] MEDS: meropenem 1,000 MG in sodium chloride 0.9% (plus) 50 ML 100 MG IV (05:13)
[2023-06-16] MEDS: vancomycin 1,000 MG in sodium chloride 0.9% 250 ML 250 MG IV (05:51)
[2023-06-16] MEDS: ipratropium 0.5 mg/2.5 mL Neb INHALATION (07:38)
[2023-06-16] MEDS: budesonide 0.5 mg/2 mL Neb INHALATION (07:38)
[2023-06-16] MEDS: levalbuterol 1.25 mg/3 mL Neb INHALATION (07:39)
--- NOTE | 2023-06-16 08:00 | MRR_ITS ---
PROCEDURE INFORMATION: Exam: MR Head Without Contrast Exam date and time: 06/16/2023 10:00 AM Age: 78 years old Clinical indication: Altered mental status/memory loss and speech disturbance; Confusion or disorientation; Aphasia; Additional info: AMS TECHNIQUE: Imaging protocol: Magnetic resonance imaging of the head without contrast. COMPARISON: CT head wo con* [id number] 06/15/2023 2:57 PM FINDINGS: Brain: There is an acute infarct in the left anterior aspect of the melba, left frontal white matter centrum semiovale, involving the watershed area between the left MCA and left GABRIELLA, right frontal white matter centrum semiovale and left posterior temporal subcortical white matter. There is diffuse increased FLAIR signal in the melba. Old lacunar infarct in the left cerebellum. Bilateral periventricular white matter high FLAIR signal consistent with chronic ischemic small vessel disease. There is mild diffuse parenchymal volume loss. No intracranial bleed. Cerebral ventricles: Normal. No ventriculomegaly. Bones/joints: Unremarkable. Paranasal sinuses: Normal as visualized. No acute sinusitis. Mastoid air cells: Normal as visualized. No mastoid effusion. Orbital cavities: Unremarkable. Soft tissues: Unremarkable. MR/MR head wo con* [id number] IMPRESSION: Multi territory acute infarcts involving the melba, bilateral centrum semiovale and left temporal white matter. Findings can be embolic versus prolonged hypotension/hypoperfusion state.
--- NOTE | 2023-06-16 09:38 | MRR_ITS ---
PROCEDURE INFORMATION: Exam: MRA Head Without Contrast; Arteriography Exam date and time: 06/16/2023 10:22 AM Age: 78 years old Clinical indication: Cognitive deficit; Altered mental status; Additional info: CVA TECHNIQUE: Imaging protocol: Magnetic resonance angiography head without contrast. [id number] (TOF) technique was utilized for this exam. Exam focused on the arteries. COMPARISON: MR head wo con* [id number] 06/16/2023 10:00 AM FINDINGS: ANTERIOR CIRCULATION: Right internal carotid artery: Intracranial segment is patent with no significant stenosis. No aneurysm. Right middle cerebral artery: Mild stenosis of the M2 segment of the right MCA. Right anterior cerebral artery: No occlusion or significant stenosis. No aneurysm. Left internal carotid artery: Intracranial segment is patent with no significant stenosis. No aneurysm. Left middle cerebral artery: There is mild stenosis of the M2 segment of the left MCA. There is a 2 mm aneurysm at the trifurcation of the left MCA. Left anterior cerebral artery: No occlusion or significant stenosis. No aneurysm. POSTERIOR CIRCULATION: Right vertebral artery: No occlusion or significant stenosis. No aneurysm. Left vertebral artery: No occlusion or significant stenosis. No aneurysm. 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 There is a 6 mm x 5 mm aneurysm at the tip of the basilar artery. Right posterior cerebral artery: No occlusion or significant stenosis. No aneurysm. Left posterior cerebral artery: No occlusion or significant stenosis. No aneurysm. MR/MR angio head wo con [id number] IMPRESSION: 1. 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 2. 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 3. 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 4. Mild narrowing of the M2 segment of the left MCA. THIS REPORT CONTAINS FINDINGS THAT MAY BE CRITICAL TO PATIENT CARE. The findings were verbally communicated via telephone conference with STEFANIE BOWLING at 11:16 AM FROG FARMER on 06/16/2023. The findings were acknowledged and understood.
[2023-06-16] MEDS: levETIRAcetam 1,000 MG/100 ML PREMIX 400 MG IV (10:55)
--- NOTE | 2023-06-16 12:27 | PC.NURSE ---
code status notified dr sheridan via voalte phone that dgtrjaneth Mtz and Guadalupe have decided to change pt code status to AND. Dr sheridan stated he will be in to talk to the family.
--- NOTE | 2023-06-16 13:03 | P.PN_ITS ---
Subjective 2 Subjective: - Early this morning, patient was seen r nehemiahghly at 9:10 AM family members are at bedside, patient responds to her name, she I cannot discern any facial droop, no slurring of words, she is encephalopathic but she does follow commands, she has significant right upper or right lower extremity deficits, right arm falls to the bed against gravity right lower extremity falls to the bed, she can lift up her left arm it does not fall to bed same thing with the left lower extremity, she is able to do [id number] on the left side but not on the right side, pupils are equal round reactive to light, she has a slight right facial droop, she has neglect on the right side -NIH stroke scale is 6-8, difficult to f ully assess given encephalopathy -Yesterday evening at around 6 PM I had extensive discussion with patient's family patient's family tell me that patient is very confused, no focal neurologic deficits at that point, globally confused, thought at that time was given a global confusion, it could be for possible aspiration pneumonia, her antibiotic coverage was better than to vancomycin meropenem -Spoke to nursing staff, about patient's deficits, on initial patient handoff, the timeframe of these deficits are an unknown -Spoke to family in detail, yesterday wh en I assessed her, she had equal strength in bilateral upper extremities and lower extremities she could follow some commands, but had global encephalopathy -In speaking with the intermediate she h ad slight right-sided deficits but these are quite profound and I would say these are new from my last assessment yesterday morning -I read discussed with patient and famil y, family did not notice these deficits yesterday evening when they visited with her, her symptoms were more global -Given more acute presentation I would s ay that these are acute deficits, acute CVA, with global encephalopathy -Head CT yesterday had no acute bleed -Stat MRI/MRA were ordered -M RI of the brain ordered showed - MR/MR head wo con* [id number] IMPRESSION: Multi territory acute infarcts involving the melba, bilateral centrum semiovale and left temporal white matter. Findings MRA brain MR/MR angio head wo con [id number] IMPRESSION: 1. 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 2. 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 3. A 2 mm aneurysm at the left MCA tri furcation. 4. Mild narrowing of the M2 segment of the left MCA. can be embolic versus prolonged hypotension/hypoperfusion state. -Patient has received Plavix, aspirin, I held her Lovenox she has not received it this morning, last dose was yesterday evening -She has atrial fibrillation when she ca me in, she is converted to normal sinus rhythm, -I immediately spoke to [facility] daniele, teleneurology spoke to Dr. Fitzgerald -Patient is a candidate for thrombectomy , but he recommended a closer hospital as you are a back to [place] is about 40 minutes, but could call back if there is any issues for possible consideration of transfer for thrombectomy -I spoke to them to transfer line at [facility], they are to neurosurgeons that perform thrombectomies will be out until Sunday -Then I spoke to [facility], about the situation and the need for thrombectomy they advised me that their beds are completely full and they are not overt -Spoke to Dr. Fitzgerald again at [facility], he was given speak to neurosurgery about to see if patient is a candidate for thrombectomy procedure -Patient was reexamined, she definitely has persistent neglect on the right, right-sided deficits, NIH stroke scale is about 8, does have encephalopathy global encephalopathy, she tracks me but not on the right, has a blank stare at times, does not say words she has been Hypertensive I held her Cardizem and started her on fluids, kept her flat in bed, allow for permissive hypertension for now but her blood pressure is 132/68, pulse 65 respiratory 20, temperature 97.5 -I spoke to patient's family about MRI f indings, the concern for her basilar artery, her left MCA, multiple CVAs seen on MRI the concern is is that with her A-fib with RVR, the possibility of her having an embolic phenomenon, this would certainly explain her right-sided deficits,, however her global symptoms could be explained by her basilar artery near complete occlusion -I had extensive discussion about option s available to patient including but not limited to conservative interventions versus thrombectomy, and CODE STATUS -Discussed conservative interventions an ticoagulant therapy monitoring her PT OT -Other option would be thrombectomy proc formerly [facility] neurosurgery involvement, which we would be associate with morbidity and mortality, Inc. loading but not limited to increased risk of intracranial bleed, other significant complications, or worsening of her neurologic status -After this testing risk and benefits of all options, shared decision making, all questions answered, patient's family 2 daughters, who is patient's next of kin decided to elect for patient be transferred to [facility] for thrombectomy procedure, -We discussed her goals of care in detai l they want everything to be done for her however if she were to have cardiac arrest episode or to stop breathing they want her to be DNR/DNI -Reexamined, and a stroke scale remains about 8, normotensive, is normal sinus rhythm pulse 65 respiratory 20 temperature 97.5, urine output 1150, family numbers are talking to her, she seems to be more responsive, but does not say any words, remains a bit encephalopathic, global encephalopathy, has a blank stare at times, continues to have profound right upper right lower extremity weakness -Immediately Air-Evac was called, Air-Ev ac was standby ready, spoke to Dr. Fitzgerald from neurology confirmed patient's decision, provided patient's family phone number, initiated transfer -[facility] has picked up patient, immediate ly patient will be transferred -Spoke to neurology, spoke to patient, s poke to patient's family spoke to nursing staff, spoke to vrads, spoke to transfer center Vitals/I&O/Wt Last Vital Signs Temp 97.5 F L 06/16/23 07:10 Pulse 77 06/16/23 07:54 Resp 16 06/16/23 07:40 BP 163/54 06/16/23 07:10 Pulse Ox 93 06/16/23 07:40 O2 Del Method Nasal Cannula 06/16/23 07:40 O2 Flow Rate 4 06/16/23 07:40 06/15/23 06/16/23 06/16/23 22:59 06:59 14:59 Intake Total 300 / 350 50 / 400 350 / 350 Output Total 1050 / 1050 100 / 1150 Balance -750 / -700 -50 / -750 350 / 350 Weight last 48 hrs Weight 76.521 kg Weight 76.521 kg Weight 75.568 kg Weight 75.568 kg Weight 75.296 kg Physical Exam 2 Const: COMMON NORMALS: no acute distress Resp: COMMON NORMALS: normal respiratory effort, No retractions, No use of accessory muscles and clear to auscultation bilaterally AUSCULTATION: clear to auscultation bilaterally Cardio: COMMON NORMALS: regular rate, regular rhythm, S1 normal heart sound present and S2 normal heart sound present RATE: regular rate RHYTHM: r egular rhythm HEART SOUNDS: S1 normal heart sound present and S2 normal heart sound present GI: COMMON NORMALS: Normal to inspection, nondistended, normoactive bowel sounds present and non-tender Extremity: COMMON NORMALS: no calf tenderness and no pedal edema Data 06/16/23 03:47 06/16/23 03:47 Micro: Microbiology 06/14/23 21:09 Blood Culture - Preliminary Blood NEGATIVE TO DATE 06/14/23 21:05 Blood Culture - Preliminary Blood NEGATIVE TO DATE A&P Assessment and plan (1) NSTEMI (non-ST elevated myocardial infarction): (2) Atrial fibrillation with RVR: (3) Acute encephalopathy: (4) Basilar artery embolism: (5) Acute CVA (cerebrovascular accident): (6) Cerebral aneurysm: Plan Acute CVA right-sided deficits, encephalopathy -nih 6-8 -time frame unkown head ct iMPRESSION: 1. No acute intracranial hemorrhage or edema. 2. Mild atrophy and small vessel ischemic disease. There are a few small lacunar infarcts. MRI brain MR/MR head wo con* [id number] IMPRESSION: Multi territory acute infarcts involving the melba, bilateral centrum semiovale and left temporal white matter. Findings can be embolic versus prolonged hypotension/hypoperfusion state. MRA head and neck MR/MR angio head wo con [id number] IMPRESSION: 1. 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 2. 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 3. 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 4. Mild narrowing of the M2 segment of the left MCA. echo CONCLUSIONS LV systolic function is normal with EF of 60-65% Moderate to severe concentric left ventricular hypertrophy Mild mitral regurgitation. Mild aortic stenosis Trace tricuspid regurgitation No comparison studies are available. plan: -Dr. Flores recommends continue aspirin, Plavix, Lovenox has been on hold -Transfer to [facility] for thrombectomy procedure -Spoke to patient's family that the thrombectomy procedure given her CVA, involving the basilar artery, left MCA, will be a complicated procedure, morbidity mortality associated, however patient's family wants everything to be done -We had a detailed discussion about her goals of care, patient's 2 daughters, had a detailed discussion amongst themselves, and had a detailed discussion with him, for now they want their mom to be a DNR/DNI, I had a detailed discussion with him that [place] was to keep in contact keep them up-to-date about the procedure, and complications and progress, number provided was given to transfer center -For pneumonia continue vancomycin, meropenem -Holding Lasix -Continue steroids Attestations 2 Medical Necessity Statement*: Patient requires hospitalization for acute CVA, transfer for thromectomy Coding Level of Care Code Critical Care >/= 30 minutes Critical care time (in minutes): 85 The high probability of a clinically significant, sudden or life threatening deterioration, as referenced in this documentation, required my full and direct attention, intervention and personal management. The critical care time shown is in addition to time spent performing any reported separately billable procedures and includes the following: [x] Data and vital sign review and interpretation [x ] Patient assessment, examination and intervention [x] Medication orders and management [x] Patient/Family updates as able [x] Care Coordination and Documentation. 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
--- NOTE | 2023-06-16 13:10 | PC.NURSE ---
AIR Transfer to [facility] for thrombectomy
--- NOTE | 2023-06-16 13:43 | PM.TDS ---
Transfer Summary Providers Date of Admission: 06/14/23 22:57 Date of Discharge/Transfer: 06/16/23 Attending Provider at Admission: Brayden Mcclellan Attending Provider at Transfer: Michael Persaud MD Primary Care Provider: LESLEY Encinas Transfer Plans: Anticipated date of transfer: 06/16/23. Diagnoses at Discharge Discharge Diagnosis (1) NSTEMI (non-ST elevated myocardial infarction): Status: Acute (2) Atrial fibrillation with RVR: Status: Acute (3) Acute encephalopathy: Status: Acute (4) Basilar artery embolism: Status: Acute (5) Acute CVA (cerebrovascular accident): Status: Acute (6) Cerebral aneurysm: Status: Acute Reason for Visit Reason for Visit sob Hospital Course Hospital Course 78-year-old lady with history of COPD, was brought in from half-way due to shortness of breath, on arrival on BiPAP, with tachycardia, tachypnea, wheezing bilaterally, decreased air entry, did not tolerate BiPAP so switched over to 2 L nasal cannula, received breathing treatment, Solu-Medrol. In ER she is found to have positive troponin delta. He is awake and alert, responds to questions, but is not a good historian, also is not currently oriented to place, thinking she is at the half-way, but cannot tell me the year. Oriented to person. Patient was admitted to [facility] for acute respiratory failure, secondary to COPD, CHF, aspiration pneumonia received steroids, antibiotics, diuretic therapy. In terms of respiratory failure improved, came off BiPAP therapy, remained afebrile, normotensive, cultures so far negative, she also had acute encephalopathy, symptoms initially were global encephalopathy, initially thought to be secondary to aspiration pneumonia. -on 06/16/2023 - Early this morning, patient was seen roughly at 9:10 AM family members are at bedside, patient responds to her name, she I cannot discern any facial droop, no slurring of words, she is encephalopathic but she does follow commands, she has significant right upper or right lower extremity deficits, right arm falls to the bed against gravity right lower extremity falls to the bed, she can lift up her left arm it does not fall to bed same thing with the left lower extremity, she is able to do [id number] on the left side but not on the right side, pupils are equal round reactive to light, she has a slight right facial droop, she has neglect on the right side -NIH stroke scale is 6-8, difficult to fully assess given encephalopathy -Yesterday evening at around 6 PM I had extensive discussion with patient's family patient's family tell me that patient is very confused, no focal neurologic deficits at that point, globally confused, thought at that time was given a global confusion, it could be for possible aspiration pneumonia, her antibiotic coverage was better than to vancomycin meropenem -Spoke to nursing staff, about patient's deficits, on initial patient handoff, the timeframe of these deficits are an unknown -Spoke to family in detail, yesterday when I assessed her, she had equal strength in bilateral upper extremities and lower extremities she could follow some commands, but had global encephalopathy -In speaking with the half-way she had slight right-sided deficits but these are quite profound and I would say these are new from my last assessment yesterday morning -I read discussed with patient and family, family did not notice these deficits yesterday evening when they visited with her, her symptoms were more global -Given more acute presentation I would say that these are acute deficits, acute CVA, with global encephalopathy -Head CT yesterday had no acute bleed -Stat MRI/MRA were ordered -M RI of the brain ordered showed - MR/MR head wo con* [id number]: Multi territory acute infarcts involving the melba, bilateral centrum semiovale and left temporal white matter. Findings MRA brain MR/MR angio head wo con [id number] IMPRESSION: 1. 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 2. 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 3. 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 4. Mild narrowing of the M2 segment of the left MCA. can be embolic versus prolonged hypotension/hypoperfusion state. -Patient has received Plavix, aspirin, I held her Lovenox she has not received it this morning, last dose was yesterday evening -In terms of the patient was a tPA candidate, she had received therapy Lovenox last night, she was on aspirin, Plavix, as timeframe was unknown and as she had been on therapeutic Lovenox, immediately she was not a candidate for tPA, the question is that she is candidate for thrombectomy procedure -She has atrial fibrillation when she came in, she is converted to normal sinus rhythm, -I immediately spoke to [facility], teleneurology spoke to Dr. Fitzgerald -Patient is a candidate for thrombectomy, but he recommended a closer hospital as you are a back to [place] is about 40 minutes, but could call back if there is any issues for possible consideration of transfer for thrombectomy -I spoke to them to transfer line at [facility], they are to neurosurgeons that perform thrombectomies will be out until Sunday -Then I spoke to [facility], about the situation and the need for thrombectomy they advised me that their beds are completely full and they are not overt -Spoke to Dr. Fitzgerald again at [facility], he was given speak to neurosurgery about to see if patient is a candidate for thrombectomy procedure -Patient was reexamined, she definitely has persistent neglect on the right, right-sided deficits, NIH stroke scale is about 8, does have encephalopathy global encephalopathy, she tracks me but not on the right, has a blank stare at times, does not say words she has been Hypertensive I held her Cardizem and started her on fluids, kept her flat in bed, allow for permissive hypertension for now but her blood pressure is 132/68, pulse 65 respiratory 20, temperature 97.5 -I spoke to patient's family about MRI findings, the concern for her basilar artery, her left MCA, multiple CVAs seen on MRI the concern is is that with her A-fib with RVR, the possibility of her having an embolic phenomenon, this would certainly explain her right-sided deficits,, however her global symptoms could be explained by her basilar artery near complete occlusion -I had extensive discussion about options available to patient including but not limited to conservative interventions versus thrombectomy, and CODE STATUS -Discussed conservative interventions anticoagulant therapy monitoring her PT OT -Other option would be thrombectomy procedure neurosurgery involvement, which we would be associate with morbidity and mortality, Inc. loading but not limited to increased risk of intracranial bleed, other significant complications, or worsening of her neurologic status -After this testing risk and benefits of all options, shared decision making, all questions answered, patient's family 2 daughters, who is patient's next of kin decided to elect for patient be transferred to [facility] for thrombectomy procedure, -We discussed her goals of care in detail they want everything to be done for her however if she were to have cardiac arrest episode or to stop breathing they want her to be DNR/DNI -Reexamined, and a stroke scale remains about 8, normotensive, is normal sinus rhythm pulse 65 respiratory 20 temperature 97.5, urine output 1150, family numbers are talking to her, she seems to be more responsive, but does not say any words, remains a bit encephalopathic, global encephalopathy, has a blank stare at times, continues to have profound right upper right lower extremity weakness -Immediately Air-Evac was called, Air-Evac was standby ready, spoke to Dr. Fitzgerald from neurology confirmed patient's decision, provided patient's family phone number, initiated transfer -[facility] has picked up patient, immediately patient will be transferred Physical Exam Const: COMMON NORMALS: no acute distress Resp: COMMON NORMALS: normal respiratory effort, No retractions, No use of accessory muscles and clear to auscultation bilaterally AUSCULTATION: clear to auscultation bilaterally Cardio: COMMON NORMALS: regular rate, regular rhythm, S1 normal heart sound present and S2 normal heart sound present RATE: regular rate RHYTHM: regular rhythm HEART SOUNDS: S1 normal heart sound present and S2 normal heart sound present GI: COMMON NORMALS: Normal to inspection, nondistended, normoactive bowel sounds present and non-tender Extremity: COMMON NORMALS: no pedal edema TS Data Studies Completed and Pending Pending at discharge Category Date Time Status Blood Culture Stat Lab 06/14/23 21:09 Results C Reactive Protein AM LABS Lab 06/17/23 04:00 Ordered C Reactive Protein AM LABS Lab 06/18/23 04:00 Ordered Complete Blood Count w/Auto AM LABS Lab 06/17/23 04:00 Ordered Complete Blood Count w/Auto AM LABS Lab 06/18/23 04:00 Ordered Comprehensive Metabolic Panel AM LABS Lab 06/17/23 04:00 Ordered Comprehensive Metabolic Panel AM LABS Lab 06/18/23 04:00 Ordered Lactate (Lactic Acid level) AM LABS Lab 06/17/23 04:00 Ordered Lactate (Lactic Acid level) AM LABS Lab 06/18/23 04:00 Ordered Magnesium AM LABS Lab 06/17/23 04:00 Ordered Magnesium AM LABS Lab 06/18/23 04:00 Ordered NT Pro B Type Natriuretic Pept QAM Lab 06/17/23 06:00 Ordered NT Pro B Type Natriuretic Pept QAM Lab 06/18/23 06:00 Ordered Phosphorus AM LABS Lab 06/17/23 04:00 Ordered Phosphorus AM LABS Lab 06/18/23 04:00 Ordered Procalcitonin AM LABS Lab 06/17/23 04:00 Ordered Procalcitonin AM LABS Lab 06/18/23 04:00 Ordered Prothrombin Time INR AM LABS Lab 06/17/23 04:00 Ordered Prothrombin Time INR AM LABS Lab 06/18/23 04:00 Ordered Vancomycin Trough Timed Lab 06/17/23 05:00 Ordered Completed Studies During Hospitalization Category Date Time Status CT angio chest PE protcl [id number] Routine Cat Scan 06/15/23 12:[address] head wo con* [id number] Routine Cat Scan 06/15/23 12:10 Completed XR chest 1V portable [id number] Stat Exams 06/14/23 18:14 Completed MR head wo con* [id number] Routine MRI 06/16/23 08:00 Completed MRA head [MR angio head wo con [id number]] Routine MRI 06/16/23 09:38 [place] [id number] Routine Ultrasound 06/15/23 12:09 Completed CV. echo complete* [id number] Routine Ultrasound 06/15/23 01:28 Completed Laboratory Last Values WBC 8.12 10^3/uL (3.29-11.43) 06/16/23 03:47 RBC 4.52 10^6/uL (3.85-5.65) 06/16/23 03:47 Hgb 13.20 g/dL (11.27-16.99) 06/16/23 03:47 Hct 40.5 % (36-47) 06/16/23 03:47 MCV 89.6 fl (85-98) 06/16/23 03:47 MCH 29.2 pg (27-33) 06/16/23 03:47 MCHC 32.6 g/dL (30-55) 06/16/23 03:47 RDW 15.8 % (12.1-15.1) H 06/16/23 03:47 Plt Count 267 10^3/cmm (157-399) 06/16/23 03:47 MPV 8.6 fL (7.4-10.4) 06/16/23 03:47 Neut % (Auto) 91.9 % 06/16/23 03:47 Lymph % (Auto) 3.7 % 06/16/23 03:47 Lewis % (Auto) 3.4 % 06/16/23 03:47 Eos % (Auto) 0.0 % 06/16/23 03:47 Baso % (Auto) 0.0 % 06/16/23 03:47 Neut # (Auto) 7.46 10^3/uL (1.8-7.7) 06/16/23 03:47 Lymph # (Auto) 0.3 10^3/uL (0.8-4.8) L 06/16/23 03:47 Lewis # (Auto) 0.3 10^3/uL (0.2-0.9) 06/16/23 03:47 Eos # (Auto) 0.0 10^3/uL (0.0-0.8) 06/16/23 03:47 Baso # (Auto) 0.0 10^3/uL (0.0-0.1) 06/16/23 03:47 Nucleated RBC % (auto) 0 % 06/16/23 03:47 Nucleated RBCs # 0.0 /100WBC 06/16/23 03:47 PT 15.20 SECONDS (12.1-14.9) H 06/16/23 03:47 INR 1.16 (0.8-1.2) 06/16/23 03:47 D-Dimer 0.99 ug/mLFEU (0-0.59) H 06/14/23 18:22 Specimen Type Arterial 06/15/23 13:03 Sample Site Radial, left 06/15/23 13:03 ABG pH 7.44 (7.35-7.45) 06/15/23 13:03 ABG pCO2 36.9 mmHg (35-45) 06/15/23 13:03 ABG pO2 71.9 mmHg (80.0-100.0) L 06/15/23 13:03 ABG PO2/FiO2 Ratio 0 06/15/23 13:03 ABG HCO3 24.9 mmol/L (22-26) 06/15/23 13:03 ABG O2 Saturation 96.7 06/14/23 18:15 ABG Base Excess 1.0 mmol/L (-2.0-2.0) 06/15/23 13:03 Madi Test Pos 06/15/23 13:03 A-a O2 Gradient 3.1 mmHg (5-10) L 06/14/23 18:15 Hematocrit 46.0 % (37-47) 06/15/23 13:03 Hgb O2 Saturation 95.8 % (95-100) 06/14/23 18:15 Carboxyhemoglobin 0.7 %THgb (0.4-20.1) 06/14/23 18:15 Methemoglobin 0.2 % (0.4-1.5) L 06/14/23 18:15 Total Hemoglobin 16.9 g/dL (12-16) H 06/14/23 18:15 Sodium 144.0 mmol/L (131-143) H 06/14/23 18:15 Potassium 4.2 mmol/L (3.5-5.0) 06/14/23 18:15 Glucose 142.0 mg/dL (70-115) H 06/14/23 18:15 Ionized Calcium 1.3 mmol/L (1.1-1.4) 06/14/23 18:15 O2 Delivery Device Nc 06/15/23 13:03 O2 Liters/Min 3.0 % 06/15/23 13:03 FiO2 32.0 % 06/15/23 13:03 Multi Care Technician ID glc 06/15/23 13:03 Sodium 147 mmol/L (136-145) H 06/16/23 03:47 Potassium 3.5 mmol/L (3.5-5.1) 06/16/23 03:47 Chloride 113 mmol/L (98-107) H 06/16/23 03:47 Carbon Dioxide 26 mmol/L (22-29) 06/16/23 03:47 Anion Gap 11.5 (5-19) 06/16/23 03:47 BUN 44 mg/dL (8-23) H 06/16/23 03:47 Creatinine 0.6 mg/dL (0.5-0.9) 06/16/23 03:47 GFR Calculation Not Reportable 06/16/23 03:47 Glucose 148 mg/dL (65-115) H 06/16/23 03:47 Calculated Osmolality 318 mOsm/kg (285-295) H 06/16/23 03:47 Lactic Acid 0.9 mmol/L (0.5-2.2) 06/14/23 18:22 Lactate 0.9 mmol/L (0.5-2.2) 06/16/23 03:47 Calcium 8.8 mg/dL (8.5-10.5) 06/16/23 03:47 Phosphorus 3.0 mg/dL (2.5-4.5) 06/16/23 03:47 Magnesium 2.3 mg/dL (1.7-2.3) 06/16/23 03:47 Total Bilirubin 0.6 mg/dL (0.15-1.2) 06/16/23 03:47 AST 12 U/L (0-32) 06/16/23 03:47 ALT 33 U/L (0-33) 06/16/23 03:47 Alkaline Phosphatase 85 U/L (35-105) 06/16/23 03:47 Ammonia 31 umol/L (11-51) 06/15/23 14:10 Troponin T Baseline 39 ng/L (0-10) H 06/14/23 18:22 Troponin T 120 Minute 49.64 ng/L (0-10) H 06/14/23 21:05 Delta Troponin T 10.64 ABS# (0-10) H* 06/14/23 21:05 Troponin T Hi Sens 6Hr 34.72 ng/L (0-10) H 06/15/23 01:21 Troponin T Hi Sens 6Hr Delta -4.28 ng/L (0-12) L 06/15/23 01:21 C-Reactive Protein 3.3 mg/L (0.0-4.9) 06/16/23 03:47 NT-Pro-B Natriuret Pep 1505 pg/mL (0-450) H 06/16/23 03:47 Total Protein 5.1 g/dL (6.6-8.7) L 06/16/23 03:47 Albumin 3.0 g/dL (3.5-5.2) L 06/16/23 03:47 Globulin 2.1 g/dL (1.3-4.6) 06/16/23 03:47 Procalcitonin 0.10 ng/mL (0-0.5) 06/16/23 03:47 TSH 0.40 uIU/mL (0.27-4.20) 06/15/23 03:53 Urine Color Light yellow (Yellow) 06/15/23 17:00 Urine Appearance Clear (CLEAR) 06/15/23 17:00 Urine pH 5 (5-7) 06/15/23 17:00 Ur Specific [place] 1.010 (1.005-1.030) 06/15/23 17:00 Urine Protein Neg (Negative) 06/15/23 17:00 Urine Glucose (UA) Norm (Normal) 06/15/23 17:00 Urine Ketones Negative (Negative) 06/15/23 17:00 Urine Blood Neg (Negative) 06/15/23 17:00 Urine Nitrate Negative (Negative) 06/15/23 17:00 Urine Bilirubin Neg (Negative) 06/15/23 17:00 Urine Urobilinogen Norm mg/dL (Negative) 06/15/23 17:00 Ur Leukocyte Esterase Negative (Negative) 06/15/23 17:00 Adenovirus (PCR) Not detected (NOT DETECT) 06/15/23 02:20 C. pneumoniae DNA (PCR) Not detected (NOT DETECT) 06/15/23 02:20 Coronavirus 229E (PCR) Not detected (NOT DETECT) 06/15/23 02:20 Human Metapneumovir PCR Not detected (NOT DETECT) 06/15/23 02:20 Influenza A (H1) PCR Not detected (NOT DETECT) 06/15/23 02:20 Influ A (H1/09) PCR Not detected (NOT DETECT) 06/15/23 02:20 Influenza A (H3) PCR Not detected (NOT DETECT) 06/15/23 02:20 Influenza Type A Ag negative (Negative) 06/14/23 18:25 Influenza Type A (PCR) Not detected (NOT DETECT) 06/15/23 02:20 Influenza Type B Ag negative (Negative) 06/14/23 18:25 Influenza Type B (PCR) Not detected (NOT DETECT) 06/15/23 02:20 M. pneumoniae (PCR) Not detected (NOT DETECT) 06/15/23 02:20 Parainfluenza 1 (PCR) Not detected (NOT DETECT) 06/15/23 02:20 Parainfluenza 2 (PCR) Not detected (NOT DETECT) 06/15/23 02:20 Parainfluenza 3 (PCR) Not detected (NOT DETECT) 06/15/23 02:20 Parainfluenza 4 (PCR) Not detected (NOT DETECT) 06/15/23 02:20 RSV Type A (PCR) Not detected (NOT DETECT) 06/15/23 02:20 RSV Type B (PCR) Not detected (NOT DETECT) 06/15/23 02:20 Entero/Rhino (PCR) Not detected (NOT DETECT) 06/15/23 02:20 SARS-CoV-2 (PCR) Not detected (NOT DETECT) 06/15/23 02:20 SARS-CoV-2 Ag (Rapid) negative (Negative) 06/14/23 18:25 Radiology Impressions Chest X-Ray 06/14/23 18:14 IMPRESSION: Hyperinflated but clear lungs. No other acute cardiopulmonary abnormality. Head MRI 06/16/23 08:00 IMPRESSION: Multi territory acute infarcts involving the melba, bilateral centrum semiovale and left temporal white matter. Findings can be embolic versus prolonged hypotension/hypoperfusion state. ADDENDUM: 06/16/23 1119 THIS REPORT CONTAINS FINDINGS THAT MAY BE CRITICAL TO PATIENT CARE. The findings were verbally communicated via telephone conference with MICHAEL PERSAUD at 11:16 AM CREPE MACHINE OPERATOR on 06/16/2023. The findings were acknowledged and understood. Head MRA 06/16/23 09:38 IMPRESSION: 1. 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 2. 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 3. 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 4. Mild narrowing of the M2 segment of the left MCA. THIS REPORT CONTAINS FINDINGS THAT MAY BE CRITICAL TO PATIENT CARE. The findings were verbally communicated via telephone conference with MICHAEL PESRAUD at 11:16 AM CREPE MACHINE OPERATOR on 06/16/2023. The findings were acknowledged and understood. Recent Clincial Data Last Vital Signs Temp 97.5 F L 06/16/23 07:10 Pulse 65 06/16/23 12:00 Resp 20 H 06/16/23 12:00 BP 132/68 06/16/23 12:00 Pulse Ox 92 06/16/23 12:00 O2 Del Method Nasal Cannula 06/16/23 12:00 O2 Flow Rate 4 06/16/23 07:40 Vital Signs Temp Pulse Resp BP Pulse Ox O2 Del Method O2 Flow Rate 06/16/23 12:00 65 20 H 132/68 92 Nasal Cannula 06/16/23 07:54 77 06/16/23 07:40 60 16 93 Nasal Cannula 4 06/16/23 07:10 97.5 F L 78 26 H 163/54 94 Nasal Cannula 06/16/23 06:00 64 06/16/23 05:51 97.6 F 71 20 H 124/71 93 Nasal Cannula 3 06/16/23 02:00 Nasal Cannula 3 Intake & Output/Weight 06/14/23 06/15/23 06/16/23 06/17/23 06:59 06:59 06:59 06:59 Intake Total 400 / 400 350 / 350 Output Total 1150 / 1150 Balance -750 / -750 350 / 350 Weight 75.568 kg 76.521 kg Vitals Last Vital Signs Temp 97.5 F L 06/16/23 07:10 Pulse 65 06/16/23 12:00 Resp 20 H 06/16/23 12:00 BP 132/68 06/16/23 12:00 Pulse Ox 92 06/16/23 12:00 O2 Del Method Nasal Cannula 06/16/23 12:00 O2 Flow Rate 4 06/16/23 07:40 TS Medications Medications Alprazolam (Alprazolam 0.5 Mg Tablet) 0.5 mg PO Q12H PRN PRN Reason: anxiety Aspirin (Aspirin 81 Mg Ec Tablet) 81 mg PO DAILY [facility] Last Admin: 06/16/23 09:57 Dose: Not Given Atorvastatin Calcium (S) 80 mg PO QPM [facility] Last Admin: 06/15/23 18:29 Dose: 80 mg Budesonide (Budesonide 0.5 Mg/2 Ml Neb) 0.5 mg INHALATION BID.RESPIRATORY [facility] Last Admin: 06/16/23 07:38 Dose: 0.5 mg Clopidogrel Bisulfate (Clopidogrel 75 Mg Tablet) 75 mg PO DAILY [facility] Last Admin: 06/16/23 09:57 Dose: Not Given Diltiazem HCl (Diltiazem 30 Mg Tablet) 30 mg PO QID [facility] Last Admin: 06/16/23 09:57 Dose: Not Given Enoxaparin Sodium (Enoxaparin 80 Mg/0.8 Ml Syringe) 75 mg SUBCUT Q12H [facility] Last Admin: 06/15/23 21:51 Dose: 75 mg Meropenem 1,000 mg/ Sodium (Chloride) 50 mls @ 100 mls/hr IV Q8H [facility]; Protocol Last Infusion: 06/16/23 05:55 Dose: Infused Vancomycin HCl 1,000 mg/ (Sodium Chloride) 250 mls @ 250 mls/hr IV Q12H [facility] Last Infusion: 06/16/23 09:58 Dose: Infused Sodium Chloride (Sodium Chloride 0.9%) 1,000 mls @ 75 mls/hr IV .[id number] [facility] Ipratropium [place] (Ipratropium 0.5 Mg/2.5 Ml Neb) 0.5 mg INHALATION Q6H [facility] Last Admin: 06/16/23 07:38 Dose: 0.5 mg Levalbuterol HCl (Levalbuterol 1.25 Mg/3 Ml Neb) 1.25 mg INHALATION Q6H.RESP [facility] Last Admin: 06/16/23 07:39 Dose: 1.25 mg Lisinopril (Lisinopril 20 Mg Tablet) 20 mg PO DAILY [facility] Last Admin: 06/16/23 09:57 Dose: Not Given Methylprednisolone Sodium Succinate (Methylprednisolone Sod Succ 125 Mg/2 Ml Inj) 60 mg IVP Q6H [facility] Last Admin: 06/16/23 10:55 Dose: 60 mg Morphine Sulfate (Morphine 4 Mg/Ml Sdv 1 Ml) 2 mg IVP Q4H PRN PRN Reason: SEVERE PAIN Last Admin: 06/15/23 22:52 Dose: 2 mg Non-Formulary Medication (Acetaminophen) 650 mg PO Q12H PRN PRN Reason: mild/mod pain Ondansetron HCl (Ondansetron 2 Mg/Ml Sdv 2 Ml) 4 mg IVP Q8H PRN PRN Reason: vomiting, or N/V if npo Pantoprazole Sodium (Pantoprazole Dr 40 Mg Tablet) 40 mg PO DAILY [facility] Last Admin: 06/16/23 09:57 Dose: Not Given Sertraline HCl (Sertraline 50 Mg Tablet) 25 mg PO BEDTIME [facility] Last Admin: 06/15/23 20:45 Dose: 25 mg Discontinued Medications Albuterol Sulfate (Albuterol 2.5 Mg/3 Ml Neb) 2.5 mg INHALATION Q4H PRN PRN Reason: sob Albuterol/Ipratropium (Ipratropium-Albuterol 3 Ml Neb) 3 ml INHALATION Q6H.RESP KEMAL Last Admin: 06/15/23 02:23 Dose: 3 ml Albuterol/Ipratropium (Ipratropium-Albuterol 3 Ml Neb) 3 ml INHALATION Q6H PRN PRN Reason: SHORTNESS OF BREATH Aspirin (Aspirin 81 Mg Ec Tablet) 81 mg PO DAILY KEMAL Aspirin (Aspirin 325 Mg Tablet) 325 mg PO DAILY [facility] Last Admin: 06/15/23 02:16 Dose: 325 mg Enoxaparin Sodium (Enoxaparin 80 Mg/0.8 Ml Syringe) 80 mg SUBCUT ONCE ONE Stop: 06/14/23 22:19 Last Admin: 06/14/23 22:31 Dose: 80 mg Furosemide (Furosemide 10 Mg/Ml Sdv 4ml) 40 mg IVP ONCE ONE Stop: 06/15/23 12:31 Last Admin: 06/15/23 13:44 Dose: 40 mg Hydralazine HCl (Hydralazine 20 Mg/Ml Inj 1 Ml) 20 mg IVP ONCE ONE Stop: 06/14/23 20:12 Last Admin: 06/14/23 20:16 Dose: 20 mg Vancomycin HCl / Sodium (Chloride) 250 mls @ 0 mls/hr [id number] PROTOCOL KEMAL; Protocol Levetiracetam (Keppra) 1,000 mg in 100 mls @ 400 mls/hr IV ONCE ONE Stop: 06/16/23 09:54 Last Infusion: 06/16/23 11:29 Dose: Infused Iohexol (Iohexol 350 Mg/Ml 500 Ml Btl (Per Ml)) 0 ml IV ONCE ONE Stop: 06/15/23 15:03 Last Admin: 06/15/23 15:03 Dose: 57 ml Ipratropium [place] (Ipratropium 0.5 Mg/2.5 Ml Neb) 0.5 mg INHALATION Q6H [facility] Last Admin: 06/15/23 03:55 Dose: Not Given Levalbuterol HCl (Levalbuterol 1.25 Mg/3 Ml Neb) 1.25 mg INHALATION Q4H.RESPIRATORY PRN PRN Reason: SHORTNESS OF BREATH Levalbuterol HCl (Levalbuterol 1.25 Mg/3 Ml Neb) 1.25 mg INHALATION Q6H.RESP KEMAL Methylprednisolone Sodium Succinate (Methylprednisolone Sod Succ 125 Mg/2 Ml Inj) 125 mg IVP ONCE ONE Stop: 06/14/23 19:10 Last Admin: 06/14/23 19:16 Dose: 125 mg Metoprolol Tartrate (Metoprolol Tartrate 25 Mg Tablet) 25 mg PO BID@0900,2100 [facility] Allergies cefaclor [facility]] Allergy (Intermediate, Verified 06/14/23 18:17) unknown Penicillins Allergy (Mild, Verified 06/14/23 18:17) unknown Home Medications acetaminophen 650 mg tablet,extended release 650 mg PO Q12H PRN mild/mod pain 06/14/23 [History Confirmed 06/14/23] albuterol sulfate 2.5 mg/3 mL (0.083 %) solution for nebulization 2.5 mg inhalation Q4H PRN sob 06/14/23 [History Confirmed 06/15/23] aspirin 81 mg tablet,delayed release 81 mg PO DAILY 06/14/23 [History Confirmed 06/15/23] atorvastatin 80 mg tablet 80 mg PO QPM 06/14/23 [History Confirmed 06/15/23] clopidogrel 75 mg tablet 75 mg PO DAILY 06/14/23 [History Confirmed 06/15/23] alprazolam 1 mg tablet 0.5 mg PO Q12H PRN anxiety 06/15/23 [History Confirmed 06/15/23] fluticasone furoate 100 mcg-vilanterol 25 mcg/dose inhalation powder (Breo Ellipta) 1 inh inhalation DAILY 06/15/23 [History Confirmed 06/15/23] ipratropium 20 mcg-albuterol 100 mcg/actuation mist for inhalation (Combivent Respimat) 1 puff inhalation Q6H PRN sob. 06/15/23 [History Confirmed 06/15/23] lisinopril 20 mg tablet 20 mg PO DAILY 06/15/23 [History Confirmed 06/15/23] sertraline 25 mg tablet (Zoloft) 25 mg PO BEDTIME 06/15/23 [History Confirmed 06/15/23] Discharge Plan Discharge Patient Disposition: Home Condition: Stable Prescriptions: No Action atorvastatin 80 mg Tablet 80 mg PO QPM albuterol sulfate 2.5 mg /3 mL (0.083 %) Solution For Nebulization 2.5 mg INHALATION Q4H PRN (Reason: sob) clopidogrel 75 mg Tablet 75 mg PO DAILY Aspir-81 81 mg Tablet,Delayed Release (Dr/Ec) 81 mg PO DAILY acetaminophen 650 mg Tablet Extended Release 650 mg PO Q12H PRN (Reason: mild/mod pain) alprazolam 1 mg tablet 0.5 mg PO Q12H PRN (Reason: anxiety) lisinopril 20 mg tablet 20 mg PO DAILY Breo Ellipta 100-25 mcg/dose blister with device 1 inh INHALATION DAILY Combivent Respimat 20-100 mcg/actuation mist 1 puff INHALATION Q6H PRN (Reason: sob.) Zoloft 25 mg Tablet 25 mg PO BEDTIME Referrals: Spring Davenport FNP [Nurse Practitioner] - Abby Oakes FNP [Nurse Practitioner] - 08/08/23 10:30 am Patient Instructions: Opioid Safety, Post Heart Attack Stoplight Transfer Attestations Time Spent in Transfer Care: critical care time Critical Care Time (min): 45 Quality Metrics Clinical Quality Measures [ Cerebrovascular Accident { Contraindication to Antithrombotic: None; antithrombotic prescribed; Contraindication to Anticoagulation: Overlap treatment not indicated; Contraindication to Statin: None; Statin prescribed; Contraindication to tPA: Treatment not indicated;}] Coding Level of Care Code Critical Care >/= 30 minutes Critical care time (in minutes): 45 The high probability of a clinically significant, sudden or life threatening deterioration, as referenced in this documentation, required my full and direct attention, intervention and personal management. The critical care time shown is in addition to time spent performing any reported separately billable procedures and includes the following: [x] Data and vital sign review and interpretation [x] Patient assessment, examination and intervention [x] Medication orders and management [x] Patient/Family updates as able [x] Care Coordination and Documentation. 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
--- NOTE | 2023-06-16 14:00 | PC.NURSE ---
tr[facility]ferred pt [facility] clothing sent with pt. waiting for a bed#.
== END 2023-06-16 14:01 | disposition short-term general hospital (02) | DRG 280 ==
LOC: ER 22:32 → CSU 23:04
PROVIDERS: Admitting Provider Internal Medicine; Emergency Provider Emergency Medicine; PCP Nurse Practitioner Family; Visit Provider Family Medicine
DX: I72.5 Aneurysm of other precerebral arteries (principal); G93.41 Metabolic encephalopathy; I21.4 Non-ST elevation (NSTEMI) myocardial infarction; J96.01 Acute respiratory failure with hypoxia; J69.0 Pneumonitis due to inhalation of food and vomit; J44.1 Chronic obstructive pulmonary disease with (acute) exacerbation; I69.951 Hemiplegia and hemiparesis following unspecified cerebrovascular disease affecting right dominant side; I67.1 Cerebral aneurysm, nonruptured; R29.810 Facial weakness; I48.91 Unspecified atrial fibrillation; I50.9 Heart failure, unspecified; I11.0 Hypertensive heart disease with heart failure; R74.8 Abnormal levels of other serum enzymes; I69.991 Dysphagia following unspecified cerebrovascular disease; R13.10 Dysphagia, unspecified; Z87.891 Personal history of nicotine dependence; Z87.440 Personal history of urinary (tract) infections
CPT/HCPCS: 36415; 36600; 70450; 70544; 70551; 71045; 71275; 80051; 80053; 81003; 82140; 82330; 82803; 82805; 83605; 83735; 83880; 84100; 84145; 84443; 84484; 85025; 85378; 85610; 86140; 87040; 87426; 87486; 87581; 87633; 87804; 92523; 92610; 93005; 93306; 93970; 94640; 94664; 96372; 96376; 97161; 97530; J0360; J1650; J1940; J1953; J2185; J2270; J2930; J3370; J7050; J7614; J7626; J7644; Q9967